=== PATIENT | male | born 1970 | race Hispanic/Latino ===

== ENCOUNTER 2020-06-28 18:49 | Emergency (ER) | payer BC ==
--- OUTSIDE RECORDS SUMMARY | 2020-06-28 18:53 | XMS REPORT | Clinical Summary ---
:1970 Author Organization [facility] Address [address] [place] [id number] Care Team Providers Name Role Phone Kenya Hannah Primary Care Provider Madi Mercedes RN Unavailable Unavaila ble Allergies No Known Allergies Medications Medication Sig Dispensed Refills Start End Status Date Date blood glucose Use 4 timer per 120 Each 3 03/26/20 Active (PRECISION XTRA day: first thing 19 TEST STRIPS) test in the morning, stripsIndications: and before each Type 2 diabetes meal.. mellitus with chronic kidney disease, without long-term current use of insulin, unspecified CKD stage blood glucose Use as directed.. 1 Kit 0 03/26/20 Active meter (PRECISION 19 XTRA GLUCOMETER)Indicat ions: Type 2 diabetes mellitus with chronic kidney disease, without long-term current use of insulin, unspecified CKD stage ferrous sulfate Take 1 tablet by 90 tablet 3 03/27/20 Active 325 mg (65 mg mouth every other 19 iron) day. tabletIndications: Anemia, unspecified type clotrimazole Apply to affected 28.35 g 0 03/26/20 Active (LOTRIMIN) 1 % area 2 times 19 topical daily. creamIndications: Cellulitis of right lower extremity ergocalciferol Take 1 capsule by 90 capsule 0 03/26/20 Active (VITAMIN D2) 1,250 mouth weekly. 19 mcg (50,000 unit) capsuleIndications : CKD stage 5 due to type 2 diabetes mellitus lancets 28 Use 4 times daily 100 Each 6 05/01/20 A ctive gaugeIndications: (in the morning 19 Type 2 diabetes when you wake up, mellitus with and before each chronic kidney meal) to test disease, without blood sugar.. long-term current use of insulin, unspecified CKD stage ergocalciferol Take 1 capsule by 12 capsule 1 05/31/20 Active (VITAMIN D2) 1,250 mouth weekly. 19 mcg (50,000 unit) capsuleIndications : ESRD (end stage renal disease), Vitamin D deficiency insulin lispro Inject 30 mL 0 07/18/20 Activ e (HUMALOG U-100 subcutaneously: 3 19 INSULIN) 100 units before unit/mL breakfast, 5 injectionIndicatio units before ns: ESRD (end lunch, 3 units stage renal before dinner. disease), Poorly controlled type 2 diabetes mellitus with complication INSULIN SYRINGE Use to inject 300 Syringe 3 04/03/20 Active 0.5 mL 30GX5/16" medication 3 020 (MONOJECT times daily. Use ULTRACOMFORT a new syringe INSULIN SYR 0.5ML each time. 30GX5/16") syringe-needleIndi cations: Type 2 diabetes mellitus with chronic kidney disease, without long-term current use of insulin, unspecified CKD stage atorvastatin Take 1 tablet by 90 tablet 3 04/03/20 Active (LIPITOR) 40 mg mouth at bedtime 20 tabletIndications: nightly. Mixed hyperlipidemia insulin detemir Inject 30 mL 0 04/28/20 Acti ve U-100 (LEVEMIR) subcutaneously : 20 100 unit/mL 12 units before injectionIndicatio breakfast ns: Cellulitis of (PUERTO RICAN). right lower extremity carvediloL (COREG) Take 1 tablet by 180 tablet 3 05/05/20 Active 25 mg mouth 2 times 20 tabletIndications: daily (with Essential meals). hypertension gabapentin Take 1 capsule by 90 capsule 3 05/05/20 Active (NEURONTIN) 100 mg mouth daily. 20 capsuleIndications : Diabetic nephropathy associated with type 2 diabetes mellitus NIFEdipine Take 1 tablet by 90 tablet 3 05/05/20 Ac tive (PROCARDIA XL) 90 mouth daily. 20 mg extended release tabletIndications: Essential hypertension INSULIN SYRINGE Use to inject 300 Syringe 3 03/26/20 Discontinued 0.5mL 30GX5/16" medication 3 020 (MONOJECT times daily. Use ULTRACOMFORT a new syringe INSULIN SYR 0.5ML each time. 30GX5/16") syringe-needleIndi cations: Type 2 diabetes mellitus with chronic kidney disease, without long-term current use of insulin, unspecified CKD stage atorvastatin Take 1 tablet by 90 tablet 3 03/26/20 Discontinued (LIPITOR) 40 mg mouth at bedtime 020 tabletIndications: nightly. Mixed hyperlipidemia carvediloL (COREG) Take 1 tablet by 180 tablet 3 03/26/2006/12 Discontinued 25 mg mouth 2 times 020 (Reord er) tabletIndications: daily (with Essential meals). hypertension sevelamer Take 3 tablets by 120 tablet 6 03/26/20 D iscontinued carbonate mouth 3 times 019 (Reord er) (RENVELA) 800 mg daily with meals. tabletIndications: CKD stage 5 due to type 2 diabetes mellitus gabapentin Take 1 capsule by 90 capsule 3 03/27/20 Discontinued (NEURONTIN) 100 mg mouth daily. 020 (Reorder) capsuleIndications : Diabetic nephropathy associated with type 2 diabetes mellitus NIFEdipine Take 1 tablet by 90 tablet 3 04/18/20 Di scontinued (PROCARDIA XL) 90 mouth daily. 19 020 (Reorder) mg extended release tabletIndications: Essential hypertension insulin detemir Inject 25 Units 30 mL 3 05/31/20 Discontinued U-100 (LEVEMIR) under the skin 100 unit/mL every morning And injectionIndicatio 5 units under the ns: Cellulitis of skin in the right lower evening.. extremity bumetanide (BUMEX) Take 3 tablets by 90 tablet 3 05/31/2008/24 Discontinued 1 mg mouth 2 times 019 (Reord er) tabletIndications: daily. Essential hypertension insulin lispro Inject 5 Units 30 mL 3 06/07/20 Discontinued (HUMALOG U-100 under the skin 2 INSULIN) 100 times daily (with unit/mL meals). injectionIndicatio ns: ESRD (end stage renal disease), Poorly controlled type 2 diabetes mellitus with complication insulin detemir Inject 30 mL 0 07/18/20 Disc ontinued U-100 (LEVEMIR) subcutaneously : 100 unit/mL 18 units before injectionIndicatio breakfast and 3-5 ns: Cellulitis of units under the right lower skin in the extremity evening.. ofloxacin Instill 1 Drop in 5 mL 0 10/07/ Ex pired (OCUFLOX) 0.3 % left eye 4 times 19 020 ophthalmic daily for 10 solutionIndication days. s: Proliferative diabetic retinopathy of both eyes with macular edema associated with type 2 diabetes mellitus prednisoLONE Instill 1 Drop in 5 mL 5 10/07/ acetate (PRED left eye 4 times 19 019 FORTE) 1 % daily for 10 ophthalmic days. suspensionIndicati ons: Proliferative diabetic retinopathy of both eyes with macular edema associated with type 2 diabetes mellitus prednisoLONE Instill 1 Drop in 5 mL 5 10/25/ acetate (PRED both eyes 4 times 20 020 FORTE) 1 % daily for 10 ophthalmic days. suspensionIndicati ons: Proliferative diabetic retinopathy of both eyes with macular edema associated with type 2 diabetes mellitus insulin detemir Inject 30 mL 0 11/13/19 Disc ontinued U-100 (LEVEMIR) subcutaneously : 20 020 100 unit/mL 10 units before injectionIndicatio breakfast. ns: Cellulitis of right lower extremity insulin detemir Inject 30 mL 0 12/25/ Disc ontinued U-100 (LEVEMIR) subcutaneously : 20 020 100 unit/mL 13 units before injectionIndicatio breakfast ns: Cellulitis of (PUERTO RICAN). right lower extremity bumetanide (BUMEX) Take 3 tablets by 90 tablet 3 01/29/2006/12 Discontinued 1 mg mouth 2 times 20 020 (Other ) tabletIndications: daily. Essential hypertension sevelamer Take 3 tablets by 120 tablet 6 01/29/202 D iscontinued carbonate mouth 3 times 20 020 (Thera py (RENVELA) 800 mg daily with meals. completed) tabletIndications: CKD stage 5 due to type 2 diabetes mellitus carbamide peroxide Instill 5 Drops 1 Bottle 0 04/20/2004/24 (DEBROX) 6.5 % in each ear daily 20 020 DropIndications: for 4 days. Bilateral impacted cerumen Active Problems Problem Noted Date Vitreous hemorrhage 06/03/2020 Overview: Added automatically from request for enoc cesia [id number] Vitreous hemorrhage of both eyes 08/06/2019 Overview: Added automatically from request for enoc callaway [id number] Vitamin D deficiency 03/24/2019 Secondary hyperparathyroidism 03/24/2019 CKD stage 5 due to type 2 diabetes mellitus 03/24/2019 Nephrotic range proteinuria 03/24/2019 Proliferative diabetic retinopathy of both eyes with m acular edema 03/24/2019 associated with type 2 diabetes mellitus Diabetic nephropathy 03/14/2019 Ataxia 03/08/2019 Anemia of renal disease 03/08/2019 Hypoglycemia 03/08/2019 Essential hypertension 01/24/2019 Acute kidney injury superimposed on chronic kidney dis ease 01/24/2019 Poorly controlled type 2 diabetes mellitus with compli cation 01/24/2019 Volume overload 01/24/2019 Hypervolemia 01/24/2019 Anasarca Cellulitis of right lower extremity ESRD (end stage renal disease) Encounters Date Type Specialty Care Team Description 06/09/2020 [facility] KwesiAilcia, Type II or u nspecified type diabetes mellitus with neurological manifestations, not stated as uncontrolled(250.60) (Primary Dx); Encounter ALEENA Zambrano CKD (chronic ki dney disease) requiring chronic dialysis; Hyperlipidemia, unspecified hyperlipidemia type; Colon cancer sc reening 06/03/2020 Nurse Only Ophthalmology Margi Vargas MD diabetic retinopathy Iban, Roberta of both eyes with macular edema associated with type 2 diabetes oneida itus 06/03/2020 Office Visit Ophthalmology Margi Vargas diabetic retinopathy of both eyes with macular edema associated with type 2 diabetes mellitus (Primary Dx); MD Latasha Vitreous hemorr jericho of right eye; Combined forms of age-related cataract of both eyes 05/26/2020 Telephonic Clinical Pharmacy Sushila Vargas Insulin -requiring or Encounter A, RPH dependent type II diabetes mellit us (Primary Dx) 05/05/2020 [facility] OroscoVargas, Type II or u nspecified type diabetes mellitus with neurological manifestations, not stated as uncontrolled(250.60) (Primary Dx); Encounter ALEENA Zambrano Essential hyper tension; CKD stage 5 due to type 2 diabetes mellitus; Diabetic nephro jenaro associated with type 2 diabetes mellitus; Hyperlipidemia, unspecified hyperlipidemia type; Colon cancer sc reening 04/28/2020 Telephonic Clinical Pharmacy Sushila Vargas Insulin -requiring or Encounter A, RPH dependent type II diabetes mellit us (Primary Dx) 04/28/2020 Orders Only [facility] Orosco-Vargas, Medications [place] 04/20/2020 Same Day [facility] Practice Moni Savage NP Language barrier (Primary Dx); Bilateral impac diana cerumen; Pain in left ea r; Encounter for d iabetic foot exam 04/03/2020 Refill [facility] Orosco-Vargas, Medications [place] 03/03/2020 Telephonic Clinical Pharmacy Sushila Vargas NO SHOW ENCOUNTER Encounter A, RPH (Primary Dx) 01/29/2020 Refill [facility] Orosco-Vargas, Medications [place] 12/25/2019 Orders Only [facility] Orosco-Vargas, Medications [place] 12/24/2019 Office Visit Clinical Pharmacy Sushila Vargas Insulin -requiring or A, RPH dependent type II diabetes mellit us (Primary Dx) 11/29/2019 Office Visit Ophthalmology Margi Vargas MD diabetic retino jenaro of both eyes wi th macular edema associated with type 2 diabetes oneida itus (Primary Dx) 11/20/2019 Emergency Emergency Medicine Hu, Orthostat ic Higinio, DO hypotension (Pr imary Dx) 11/12/2019 Office Visit Clinical Pharmacy Sushila Vargas Insulin -requiring or dependent type II diabetes mellitus (Primary Dx); A, RPH Noncompliance w ith diabetes treatment 11/12/2019 Orders Only [facility] [place]rosco-Vargas, Medications [place] 11/01/2019 Office Visit Ophthalmology Margi Vargas MD diabetic retino jenaro of both eyes wi th macular edema associated with type 2 diabetes oneida itus (Primary Dx) 10/25/2019 Office Visit Ophthalmology Tonio Lee MD Prolifera tive diabetic retino jenaro of both eyes wi th macular edema associated with type 2 diabetes oneida itus (Primary Dx) 10/24/2019 Anesthesia Event Elva Hernandez MD [facility], Resident OmkarPR 10/24/2019 Surgery Margi Vargas 25g pars china na MD Latasha vitrectomy and endolaser, air exchange of lef t eye 10/24/2019 Hospital Margi Vargas Vitreous hem orrhage of both eyes (Primary Dx); Encounter MD Latasha Essential hyper tension; Acute kidney in jury superimposed on chronic kidney disease; Poorly controll ed type 2 diabetes mellitus with complication; Other hypervole stan; Hypervolemia, u nspecified hypervolemia type; Anasarca; Ataxia; Anemia of renal disease; Hypoglycemia; Diabetic nephro jenaro associated with type 2 diabetes mellitus; Cellulitis of r ight lower extremity; Vitamin D defic iency; Secondary hyper parathyroidism; CKD stage 5 due to type 2 diabetes mellitus; Nephrotic range proteinuria; Proliferative d iabetic retinopathy of both eyes with macular edema associated with type 2 diabetes mellitus; ESRD (end stage renal disease) 10/08/2019 Office Visit Thoracic Diseases Nargis Coronado MD ESRD (end stage renal disease) (Prima ry Dx) 10/07/2019 Office Visit Ophthalmology Casi De La Cruz MD Prolifera tive diabetic retino jenaro of both eyes wi th macular edema associated with type 2 diabetes oneida itus (Primary Dx) 10/03/2019 Office Visit Ophthalmology [place], Patient left w ithout being seen (Primary Dx); ALEENA Zambrano Type II or unspecified type diabetes vanessa litus with neurological manifestations, not stated as uncontrolled(250.60) Tonio Lee MD 09/24/2019 Hospital Anesthesiology [place], Encounter ALEENA Zambrano Stephanie O, MD 08/15/2019 Office Visit Clinical Pharmacy Sushila Vargas Insulin -requiring or dependent type II diabetes mellitus (Primary Dx); A, [facility] Encounter for v accination 08/06/2019 Office Visit Ophthalmology Margi Vargas Vitreous he morrhage of both eyes (Primary Dx); MD Latasha Proliferative d iabetic retinopathy of both eyes with macular edema associated with type 2 diabetes mellitus 08/02/2019 Emergency Emergency Medicine Booker Walsh PTrenton a in other MD chronic disease s classified else where (Primary Dx) 08/02/2019 Refill Family Practice Elva Dias MD Medicat ions 08/02/2019 Refill Internal Medicine Omar Huerta, Medica tions DO 07/30/2019 Emergency Emergency Medicine David Hernandez, ESRD (end stage renal MD disease) (Prima ry Dx) 07/24/2019 Office Visit Endocrinology Jolanta Mcgregor Type 2 diab etmarlon B, Fellow() mellitus with chronic Ephraim Cunha MD kidney dise ase, without long-te rm current use of insulin, unspec ified CKD stage (Prim cherry Dx) 07/24/2019 Nurse Only Endocrinology Jolanta Mcgregor, Fellow(MD) 07/18/2019 Office Visit Clinical Pharmacy Sushila Vargas Insulin -requiring or dependent type II diabetes mellitus (Primary Dx); A, RPH Noncompliance w ith diabetes treatment 07/18/2019 Orders Only Family Practice Nato Hannah PA 07/17/2019 Emergency Emergency Medicine Gio Capellan MD Dizzi ness (Primary Dx); Anemia, unspeci fied type 06/29/2019 Emergency Emergency Medicine Rusty Pride ESRD ( end stage renal MD Maranda disease) (Primary Dx) Chaya Sumner MD after 06/28/2019 Immunizations Name Administration Dates Next Due Hepatitis B Pedi/Adol 02/14/2019 Influenza, Vaccine<FLUCELVAX>(Multi-Dose) 08/15/2019 PPV 23 (Pneumococcal Polysaccharide 23 Valent) 2019 Social History Tobacco Use Types Packs/Day Years Used Date Never Smoker Smokeless Tobacco: Never Used Tobacco Cessation: Counseling Given: No Alcohol Use Drinks/Week oz/Week Comments Not Currently Food Insecurity Answer Date Recorded Within the past 12 months, you worried that your food Someti mes true 04/30/2020 would run out before you got money to buy more. Within the past 12 months, the food you bought just Sometime s true 04/30/2020 didn't last and you didn't have money to get more. Sex Assigned at Date Recorded Not on file Job Start Date Occupation Industry Not on file Not on file Not on file Travel History Travel Start Travel End No recent travel history available. COVID-19 Exposure Response Date Recorded In the last month, have you been in contact with No / Unsure 06/03/2020 2:02 PM CDT someone who was confirmed or suspected to have Coronavirus / COVID-19? Last Filed Vital Signs Vital Sign Reading Time Taken Comments Blood Pressure 158/75 04/20/2020 4:25 PM took bp meds today CDT Pulse 75 04/20/2020 4:25 PM CDT Temperature 36.6 C (97.8 F) 04/20/2020 4:25 PM CDT Respiratory Rate 18 04/20/2020 4:25 PM CDT Oxygen Saturation 99% 04/20/2020 4:25 PM CDT Inhaled Oxygen - - Concentration Weight 57.2 kg (126 lb) 04/20/2020 4:25 PM CDT Height 158.3 cm (5' 2.32") 04/20/2020 4:25 PM CDT Body Mass Index 22.81 04/20/2020 4:25 PM CDT Plan of Treatment Date Type Specialty Care Team Description 07/17/2020 Telephonic Encounter Family Practice Kenya Hannah PA [address] [place], [place] [address] [phone] Health Maintenance Due Date Last Done Comments IMM Influenza Seasonal Jul to 07/23/2020 08/15/2019December (>/= 19 yrs) DM HGBA1C (Yearly) 08/28/2020 08/28/2019, 07/24/2019, 05/13/2019, Additional history exists DM Foot Exam (Yearly) 04/20/2021 04/20/2020, 06/05/2019, 04/18/2019 DM Retinal Exam (Yearly) 06/03/2021 06/03/2020, 11/01/2019, 10/07/2019, Additional history exists DM Microalbumin Urine Scrn 06/09/2021 06/09/2020, 0, (Yearly) 05/05/2020, Additional history exists Colorectal Cancer Scrn Annual 06/24/2021 06/24/2020, 2018, (FIT/FOBT) Age 50 to 75 02/19/2019 Goals Goal Patient Goal Associated Recent Patient-Stated? Author Type Problems Progress Control Diet On track No Chintan, portion sizes (04/18/2019 Ishan Beltre 3:11 PM CDT) Note: Limit to 3 oz of protein (2 eggs) per me al and 2 servings CHO (2 tortillas or <1 c rice, beans, lentils, oatmeal, etc) Feel more energetic Lifestyle Not on track (04/18/2019 Debra Roche, Medical 2:37 PM CDT) Outbound Call Center Representative Eat Healthy Lifestyle No Marci Batista, LUBRICATION SUPERVISOR HBA1C < 7 Treatment Not on track (04/18/2019 Kenya Burrows PA 2:38 PM CDT) Maintain blood pressure Treatment Not on track ( 9 No Kenya Hannah PA under 140/90 2:37 PM CDT) Procedures Procedure Name Priority Date/Time Associated Comments Diagnosis FECAL OCCULT BLOOD Routine 06/24/2020 4:08 Colon cancer Resul ts for this PM CDT screening procedure are i n the results section. DIABETIC FOOT EXAM Routine 04/20/2020 5:00 Encounter for Resu lts for this PM CDT diabetic foot procedure are in exam the results section. BMP POC Routine 11/20/2019 12:47 Results for this PM [employer] procedure are i n the results section. ECHG EKG PROC 12 LEAD EKG; Routine 11/20/2019 11:48 Results for this TRACING ONLY AM [employer] procedure are i n the results section. GLUCOSE POC Routine 11/20/2019 11:33 Results for this AM [employer] procedure are i n the results section. GLUCOSE POC Routine 10/24/2019 8:57 Results for this PM [employer] procedure are i n the results section. VITRECTOMY TRANS PARS PLANA 10/24/2019 6:30 Vitreous WITH ENDOPHOTOCOAGULATION PM [employer] hemorrhage of both eyes Special Needs Dr. Sanon time; 1 pm- confirmed with/patient @ [phone]. CHLORIDE STAT 10/24/2019 5:42 Results for this PM [employer] procedure are i n the results section. GLUCOSE STAT 10/24/2019 5:42 Results for this PM [employer] procedure are i n the results section. SODIUM/POTASSIUM STAT 10/24/2019 5:42 Results for this PM [employer] procedure are i n the results section. CALCIUM, IONIZED STAT 10/24/2019 5:42 Results for this PM [employer] procedure are i n the results section. ARTERIAL BLOOD GAS STAT 10/24/2019 5:42 Resul ts for this WITH HEMOGLOBIN PM [employer] procedure ar e in the results section. ABG/LYTES/HGB/IONIZED STAT 10/24/2019 5:42 Re sults for this CA PANEL PM [employer] procedure are i n the results section. GLUCOSE POC Routine 10/24/2019 5:37 Results for this PM [employer] procedure are i n the results section. CBC Routine 08/28/2019 10:59 Anemia of chronic Result s for this AM [employer] renal failure, procedure are in unspecified CKD stage the re sults section. FERRITIN Routine 08/28/2019 10:59 Anemia of chronic Result s for this AM [employer] renal failure, procedure are in unspecified CKD stage the re sults section. IRON PROFILE Routine 08/28/2019 10:59 Anemia of chronic Result s for this AM [employer] renal failure, procedure are in unspecified CKD stage the re sults section. CBC/DIFF Routine 08/28/2019 10:59 Anemia of chronic Result s for this AM [employer] renal failure, procedure are in unspecified CKD stage the re sults section. HEMOGLOBIN A1C Routine 08/28/2019 10:59 Diabetes mellitus, Res ults for this AM [employer] type II, insulin procedure a re in dependent the results section. LIPID PROFILE Routine 08/28/2019 10:59 Mixed hyperlipidemia Re sults for this AM [employer] procedure are i n the results section. COMPREHENSIVE Routine 08/28/2019 10:59 Diabetes mellitus, Resu lts for this METABOLIC PANEL AM [employer] type II, insulin procedur e are in dependent the results Mixed hyperlipid emia section. Essential hypertension BMP POC Routine 08/02/2019 11:35 Results for this AM CDT procedure are i n the results section. CBC STAT 08/02/2019 11:17 Results for this AM CDT procedure are i n the results section. T&S - COLLECTION STAT 08/02/2019 11:17 Results for this AM CDT procedure are i n the results section. CBC/DIFF STAT 08/02/2019 11:17 Results for this AM CDT procedure are i n the results section. TYPE AND SCREEN STAT 08/02/2019 11:17 Results for this AM CDT procedure are i n the results section. GLUCOSE POC Routine 08/02/2019 9:20 Results for this AM CDT procedure are i n the results section. BMP POC Routine 07/30/2019 9:19 Results for this AM CDT procedure are i n the results section. 12 LEAD EKG Routine 07/30/2019 8:18 Results for this AM CDT procedure are i n the results section. GLUCOSE POC Routine 07/30/2019 8:11 Results for this AM CDT procedure are i n the results section. HEMOGLOBIN A1C Routine 07/24/2019 10:24 Type 2 diabetes Result s for this AM CDT mellitus with chronic proced ure are in kidney disease, the results without long-term section. current use of insulin, unspecified CKD stage BASIC METABOLIC PANEL Routine 07/24/2019 10:24 Type 2 diabetes Results for this AM CDT mellitus with chronic proced ure are in kidney disease, the results without long-term section. current use of insulin, unspecified CKD stage RBC UNITS STAT 07/24/2019 2:10 Results for this AM CDT procedure are i n the results section. VBG POC Routine 07/17/2019 9:25 Results for this AM CDT procedure are i n the results section. RBC UNITS STAT 07/17/2019 9:18 Results for this AM CDT procedure are i n the results section. T&S - COLLECTION STAT 07/17/2019 9:18 Results for this AM CDT procedure are i n the results section. CBC STAT 07/17/2019 9:18 Results for this AM CDT procedure are i n the results section. TYPE AND SCREEN STAT 07/17/2019 9:18 Results for this AM CDT procedure are i n the results section. CBC/DIFF STAT 07/17/2019 9:18 Results for this AM CDT procedure are i n the results section. BMP POC Routine 07/17/2019 8:35 Results for this AM CDT procedure are i n the results section. 12 LEAD EKG Routine 07/17/2019 7:23 Results for this AM CDT procedure are i n the results section. 12 LEAD EKG Routine 06/29/2019 6:29 Results for this PM CDT procedure are i n the results section. HEPATITS B CORE AB, Routine 06/29/2019 5:48 Resu lts for this TOTAL PM CDT procedure are i n the results section. HEPATITIS PANEL Routine 06/29/2019 5:48 Results for this PM CDT procedure are i n the results section. HEPATITIS B SURFACE Routine 06/29/2019 5:48 Resu lts for this AB PM CDT procedure are i n the results section. PHOSPHORUS STAT 06/29/2019 12:32 Results for this PM CDT procedure are i n the results section. BASIC METABOLIC PANEL STAT 06/29/2019 12:32 Re sults for this PM CDT procedure are i n the results section. MAGNESIUM STAT 06/29/2019 12:32 Results for this PM CDT procedure are i n the results section. RBC UNITS STAT 06/29/2019 7:26 Results for this AM CDT procedure are i n the results section. T&S - COLLECTION STAT 06/29/2019 7:26 Results for this AM CDT procedure are i n the results section. TYPE AND SCREEN STAT 06/29/2019 7:26 Results for this AM CDT procedure are i n the results section. DIFFERENTIAL, STAT 06/29/2019 6:25 Results fo r this MANUAL-WAM AM CDT procedure are i n the results section. CBC STAT 06/29/2019 6:25 Results for this AM CDT procedure are i n the results section. CBC/DIFF STAT 06/29/2019 6:25 Results for this AM CDT procedure are i n the results section. BMP POC Routine 06/29/2019 4:48 Results for this AM CDT procedure are i n the results section. after 06/28/2019 Results Fecal Occult Blood (06/24/2020 4:08 PM CDT) Pathologist Sig [facility] Occult Blood Negative Negative [facility] Specimen Stool - Feces Performing Organization Address City/State/Zipcode Phone Number [facility] [address] [place] [address] DIABETIC FOOT EXAM (04/20/2020 5:00 PM CDT) Narrative Performed At Moni Savage NP 04/20/2020 5:39 PM Diabetic Foot Exam was performed at 04/20 5:16 PM. Right foot sensation is normal, right foot pulses are normal, rig ht foot appearance is normal. Left foot sensation is normal, left brie t pulses are normal, left foot appearance is normal. POCT BMP POC docked device (11/20/2019 12:47 PM RESTAURANT HOSTESS)Only the most recent of5 resultswithin the time period is included. Pathologist Sig nature Sodium POC 134 (L) 136 - 145 mmol/L [facility] Potassium POC 3.9 3.5 - 5.1 mmol/L [facility] Chloride POC 92 (L) 98 - 107 mmol/L [facility] TCO2 POC 34 (H) 21 - 32 mmol/L [facility] Urea Nitrogen POC 23 (H) 7 - 18 mg/dL [facility] Creatinine POC 4.3 (H) 0.6 - 1.3 mg/dL [facility] Glucose POC 207 (H) 74 - 106 mg/dL [facility] Ionized Calcium POC 1.07 (L) 1.15 - 1.29 mmol/L [facility] GFR, Estimated 15 (L) >=90 mL/min/1.73 m2 [facility] Hemoglobin POC 12.9 12 - 16 g/dL [facility] Hematocrit POC 38.0 37.0 - 47.0 % [facility] Specimen Blood, venous Performing Organization Address [place] [place] Phone Number [facility] [address] [place] [address] 12 LEAD EKG (11/20/2019 11:48 AM RESTAURANT HOSTESS) 12 LEAD EKG FOR [facility] Test Date: 2019-11-20 Pat Name: TERRY MALAVE Department: 6520 Room: Gender: Senior Benefits Manager: JOELLEN : 1970 Requested By: MARIANGEL Orozco Order Number: [id number] Reading MD: Lyn Mariscal Measu rements Intervals [place] Rate: 80 P: 55 [place]: 174 QRS: -9 QRSD: 92 T: 57 QT: 401 QTc: 465 Interpretive S tatements SINUS RHYTHM POSSIBLE LEFT ATRIAL ENLARGEMENT POSSIBLE LEFT VENTRICULAR HYPERTROPHY POSSIBLE SEPTAL MYOCARDIAL INFARCTION, OF INDETERMINAT E AGE Electronically Signed On 11-22-2019 5:41:51 RESTAURANT HOSTESS by Howard munguia Ekerpeter Specimen Performing Organization Address [place] [place] Phone Number [facility] POCT GLUCOSE POC docked device (11/20/2019 11:33 AM RESTAURANT HOSTESS)Only the most recent of5 resultswithin the time period is included. Pathologist Sig nature Glucose POC 197 (H) 74 - 106 mg/dL [facility] Specimen Blood Performing Organization Address [facility] [place] Phone Number [facility] [address] [place] [address] Arterial Blood Gas with Hemoglobin (10/24/2019 5:42 PM RESTAURANT HOSTESS) Temperature 37.0 degrees C [facility] pH, Arterial 7.34 (L) 7.35 - 7.45 [facility] pCO2, Arterial 43.1 32.0 - 45.0 mm [facility] Hg pO2, Arterial 68 (L) 72 - 104 mm Hg [facility] Base Excess, Arterial -2.4 -2.5 - 2.5 [facility] mmol/L HCO3, Arterial 22.5 22.0 - 26.0 [facility] mmol/L % Sat, Arterial 91.0 (L) 95.0 - 99.0 % [facility] Arterial Hemoglobin 12.7 (L) 14.0 - 18.0 g/dL [facility] RY Specimen Blood Performing Organization Address [place] Phone Number [facility] [address] [place] [address] Sodium/Potassium (10/24/2019 5:42 PM RESTAURANT HOSTESS) Pathologist Sig nature Potassium 4.4 3.5 - 5.1 mmol/L [facility] Sodium 132 (L) 136 - 145 mmol/L [facility] Specimen Blood Performing Organization Address [place] [place] Phone Number [facility] [address] [place] [address] [phone] Calcium, Ionized (10/24/2019 5:42 PM RESTAURANT HOSTESS) Pathologist Sig nature Calcium, Ionized 1.02 (L) 1.15 - 1.29 [facility] mmol/L Specimen Blood Performing Organization Address [place] [place] Phone Number [facility] [address] [place] [address] [phone] Glucose (10/24/2019 5:42 PM RESTAURANT HOSTESS) Pathologist Sig nature Glucose 234 (H) 74 - 106 mg/dL [facility] Specimen Blood Performing Organization Address [facility] Phone Number [facility] [address] [place] [address] Chloride (10/24/2019 5:42 PM RESTAURANT HOSTESS) Pathologist Sig nature Chloride 98 98 - 107 mmol/L [facility] Specimen Blood Performing Organization Address [place] [place] Phone Number [facility] [address] [place] [address] [phone] CBC/Diff (08/28/2019 10:59 AM RESTAURANT HOSTESS)Only the most recent of4 resultswithin the time period is included. WBC 7.2 4.5 - 12.0 K/uL [facility] RBC 2.91 (L) 4.60 - 6.20 [facility] M/uL Hemoglobin 8.2 (L) 14.0 - 18.0 [facility] g/dL Hematocrit 26.4 (L) 40.0 - 54.0 % [facility] MCV 90.7 82.0 - 92.0 fL [facility] MCH 28.2 27.0 - 31.0 pg [facility] MCHC 31.1 (L) 32.0 - 36.0 [facility] g/dL RDW 52.6 (H) 35.1 - 43.9 fL [facility] Platelet 159 150 - 400 K/uL [facility] Mean Platelet Volume 10.8 9.4 - 12.4 fL [facility] Percent NRBC 0.0 % [facility] Neutrophil 51.9 34.0 - 67.9 % [facility] Lymphs 20.9 (L) 21.8 - 50.0 % [facility] Monocytes 10.2 5.3 - 12.0 % [facility] Eos 15.9 (H) 0.8 - 5.0 % [facility] Basos 0.7 0.2 - 1.2 % [facility] Immature Granulocytes 0.4 0.0 - 0.5 % [facility] Neutrophils (Absolute) 3.74 1.78 - 5.36 [facility] Y K/uL Lymphs (Absolute) 1.51 1.32 - 3.57 [facility] K/uL Monocytes(Absolute) 0.74 0.30 - 0.82 [facility] K/uL Eos (Absolute) 1.15 (H) 0.04 - 0.54 [facility] K/uL Baso (Absolute) 0.05 0.01 - 0.08 [facility] K/uL Immature Grans (Abs) 0.03 0.00 - 0.03 [facility] K/uL Absolute NRBC 0.00 K/uL [facility] Specimen Blood Performing Organization Address City/State/Zipcode Phone Number [facility] [address] [place] [address] [phone] Hemoglobin A1C (08/28/2019 10:59 AM RESTAURANT HOSTESS)Only the most recent of2 resultswithin the time period is included. Pathologist Sig nature Hemoglobin A1c 4.7 4.3 - 6.1 % [facility] Estimated Average 88 70 - 110 mg/dL [facility] Glucose Specimen Blood Performing Organization Address [place] [place] Phone Number [facility] [address] [place], [place] [phone] Comprehensive Metabolic Panel (08/28/2019 10:59 AM RESTAURANT HOSTESS) Sodium 139 136 - 145 [facility] mmol/L Potassium 3.6 3.5 - 5.1 [facility] mmol/L Chloride 99 98 - 107 mmol/L [facility] CO2 28 21 - 31 mmol/L [facility] Glucose 141 (H) 70 - 110 mg/dL [facility] Calcium 8.5 (L) 8.6 - 10.3 [facility] mg/dL Urea Nitrogen 53.0 (H) 7.0 - 25.0 [facility] mg/dL Creatinine 7.7 (H) 0.7 - 1.3 mg/dL [facility] Alkaline Phosphatase 86 34 - 104 U/L [facility] ALT 19 7 - 52 U/L [facility] AST 17 13 - 39 U/L [facility] Bilirubin, Total 0.4 0.2 - 1.2 mg/dL [facility] Total Protein 6.2 6.0 - 8.3 g/dL [facility] GFR, Estimated 8 (L) >=90 [facility] mL/min/1.73 m2 Albumin 3.7 (L) 4.2 - 5.5 g/dL [facility] Anion Gap 12 5 - 16 mmol/L [facility] Specimen Blood Performing Organization Address [place] [place] Phone Number [facility] [address] [place] [address] [phone] Ferritin (08/28/2019 10:59 AM RESTAURANT HOSTESS) Pathologist [facility] nature Ferritin 420.3 (H) 23.9 - 336.2 ng/mL [facility] Specimen Blood Performing Organization Address [place] [place] Phone Number [facility] [address] [place] [address] Lipid Profile (08/28/2019 10:59 AM RESTAURANT HOSTESS) Cholesterol 108.0 <=200.0 mg/dL [facility] Triglyceride 86 <150 mg/dL [facility] HDL 43.0 See Reference [facility] Range Narrative. LABORATORY mg/dL LDL 48 <100 mg/dL [facility] Comment: [facility] Optimal: < 100.0 mg/dL Near Optimal: 120-129 mg/dL Borderline: 130-159 mg/dL High: 160-189 mg/dL Very High: >=190 mg/dL Patient Fasting? No [facility] Specimen Blood Narrative Performed At Patient is not fasting. For a triglyceride result grea ter than [facility] 440 mg/dL, consider re-testing when the patient is in a fasting state. Performing Organization Address [facility] Phone Number [facility] [address] [place] [address] Iron Profile (08/28/2019 10:59 AM RESTAURANT HOSTESS) Pathologist Sig nature Iron 54 50 - 212 ug/dL [facility] TIBC 248 (L) 250 - 450 ug/dL [facility] % Iron Sat 22 % [facility] Transferrin 177.49 (L) 203.00 - 362.00 [facility] mg/dL Specimen Blood Performing Organization Address [place] [place] Phone Number [facility] [address] [place] [address] Type and Screen (08/02/2019 11:17 AM CDT)Only the most recent of3 resultswithin the time period is included. Pathologist Sig nature Specimen Expiration 08/05/2019 23:59 [facility] ABO/RH O POS [facility] Antibody Screen NEG [facility] Specimen Blood Performing Organization Address [place] [place] Phone Number [facility] [address] [place] [address] 12 LEAD EKG (07/30/2019 8:18 AM CDT) 12 LEAD EKG FOR CHP [facility] SMS Test Date: 2019-07-30 Pat Name: TERRY MALAVE Department: 6520 Room: Gender: M Senior Benefits Manager: DEONTE : 1970 7 Requested By: BEVERLY Pagan Order Number: [id number] Reading MD: José Miguel PICKETT Measu rements Intervals [place] Rate: 75 P: 58 NY: 135 QRS: 0 QRSD: 101 T: 37 QT: 409 QTc: 459 Interpretive S tatements SINUS RHYTHM Normal ECG Electronically Signed On 07-30-2019 10:02:05 CDT by Alfa PICKETT Specimen Performing Organization Address [facility] [place] [facility] Phone Number [facility] Basic Metabolic Panel (07/24/2019 10:24 AM CDT)Only the most recent of2 results within the time period is included. Pathologist Sig nature Sodium 136 136 - 145 mmol/L [facility] Potassium 5.2 (H) 3.5 - 5.1 mmol/L [facility] Chloride 108 (H) 98 - 107 mmol/L [facility] CO2 15 (L) 21 - 31 mmol/L [facility] Urea Nitrogen 131.0 (HH) 7.0 - 25.0 mg/dL [facility] Creatinine 10.0 (HH) 0.7 - 1.3 mg/dL [facility] Glucose 130 (H) 70 - 110 mg/dL [facility] Calcium 8.2 (L) 8.6 - 10.3 mg/dL [facility] GFR, Estimated 6 (L) >=90 mL/min/1.[address] [facility] Anion Gap 13 5 - 16 mmol/L [facility] Specimen Blood - Arm, right Performing Organization Address [facility] [place] Phone Number [facility] [place] [place] [address] [phone] [facility] [id number] [place] [address] 1 Units (07/24/2019 2:10 AM CDT)Only the most recent of3 resultswithin the time period is included. Pathologist Sig nature Crossamtch Result N/A [facility] Specimen Blood Performing Organization Address [facility] Phone Number [facility] [address] [place] [address] POCT VBG POC docked device (07/17/2019 9:25 AM CDT) Pathologist Sig nature pH, Surinder POC 7.35 7.33 - 7.43 [facility] HCO3, Surinder POC 16 (L) 22 - 26 mmol/L [facility] TCO2 POC 17 (L) 21 - 32 mmol/L [facility] PO2, Venous POC (BKR) 161 (H) 50 - 75 mm Hg [facility] pCO2,Surinder POC 28.7 (L) 38 - 50 mmHg [facility] Base Deficit, Surinder POC -10 [facility] Param's Test MICHAEL [facility] Sample Type IVEN [facility] Site RRADIA [facility] O2 Delivery Device [facility] Lactic Acid POC 0.67 0.40 - 2.00 [facility] mmol/L % Sat, Surinder POC 99 % [facility] Specimen Blood, venous Performing Organization Address [facility] Phone Number [facility] [address] [place] [address] 12 LEAD EKG (07/17/2019 7:23 AM CDT) 12 LEAD EKG FOR [facility] Test Date: 2019-07-17 Pat Name: TERRY MALAVE Department: Room: Gender: M Senior Benefits Manager: : 7 Requested By: BEVERLY Pagan Order Number: [id number] Reading MD: Lyn Mariscal Measu rements Intervals [place] Rate: 76 P: 38 [place]: 175 QRS: -17 QRSD: 104 T: 16 QT: 412 QTc: 463 Interpretive S tatements SINUS RHYTHM Electronically Signed On 07-17-2019 15:56:21 CDT by Melquiades aMriscal Specimen Performing Organization Address [place] [place] Phone Number [facility] 12 LEAD EKG (06/29/2019 6:29 PM CDT) 12 LEAD EKG FOR [facility] Test Date: 2019-06-29 Pat Name: TERRY MALAVE Department: Room: Gender: M Senior Benefits Manager: [id number] : 1970 Requested By: CHAYA Bay Order Number: [id number] Reading MD: José Miguel PICKETT Measu rements Intervals [place] Rate: 91 P: 56 [place]: 185 QRS: -15 QRSD: 102 T: 48 QT: 395 QTc: 487 Interpretive S tatements SINUS RHYTHM MINIMAL VOLTAGE CRITERIA FOR LVH, CONSIDER NORMAL VARI ANT Borderline prolonged QTc Non-specific ST-T changes Abnormal ECG Electronically Signed On 06-30-2019 8:58:56 CDT by Krish PICKETT Specimen Performing Organization Address [place] [place] Phone Number SMS Hepatitis B Surface Ab (06/29/2019 5:48 PM CDT) Hep B Surf Ab Result <4.23 Refer to result [facility] Comment: comment. mIU/mL LAB[facility]ATORY Negative: < 8.00 mIU/mL Grayzone: > = 8.00 mIU/mL to < 12.00 mIU/mL Positive: > = 12.00 mIU/mL Hep B Surf Ab Negative Negative [facility] Specimen Blood Performing Organization Address [place] Phone Number [facility] [address] [place] [address] Hepatitis B Core Ab, Total (06/29/2019 5:48 PM CDT) Pathologist Sig nature Hep B Core Ab Total Negative Negative [facility] Specimen Blood Performing Organization Address [place] [place] Phone Number [facility] [address] [place], [place] [phone] Hepatitis Panel (06/29/2019 5:48 PM CDT) Pathologist Sig nature Hepatitis C Virus (HCV) Negative Negative [facility] RY Antibody Hep B Surface Ag Negative Negative [facility] Hep A Vir Ab IgM Negative Negative [facility] Hep B Core Ab IgM Negative Negative [facility] Specimen Blood Performing Organization Address [place] [place] Phone Number [facility] [address] [place], [place] [phone] Phosphorus (06/29/2019 12:32 PM CDT) Pathologist Sig nature Phosphorus 5.4 (H) 2.5 - 5.0 mg/dL [facility] Specimen Blood Performing Organization Address [place] [place] [facility] Phone Number [facility] [address] [place] [address] Magnesium (06/29/2019 12:32 PM CDT) Pathologist Sig nature Magnesium 2.7 1.9 - 2.7 mg/dL [facility] Specimen Blood Performing Organization Address [place] Phone Number [facility] [address] [place] [address] Transfuse (Red Cell units - nursing) (06/29/2019 12:06 PM CDT)Differential, Manual (06/29/2019 6:25 AM CDT) Pathologist Sig nature Neutrophil 45.0 34.0 - 67.9 % [facility] Lymphs 20.0 (L) 21.8 - 50.0 % [facility] Monocytes 4.0 (L) 5.3 - 12.0 % [facility] Eos 28.0 (H) 0.8 - 5.0 % [facility] Basos 3.0 (H) 0.2 - 1.2 % [facility] Neutrophils (Absolute) 3.69 1.78 - 5.36 K/uL [facility] Lymphs (Absolute) 1.64 1.32 - 3.57 K/uL [facility] Monocytes(Absolute) 0.33 0.30 - 0.82 K/uL [facility] Eos (Absolute) 2.30 (H) 0.04 - 0.54 K/uL [facility] Baso (Absolute) 0.25 (H) 0.01 - 0.08 K/uL [facility] Ovalocyte 2+ (A) None seen [facility] Schistocyte 1+ (A) None seen [facility] Cells Counted [facility] Specimen Blood Performing Organization Address City/State/Zipcode Phone Number [facility] [address] [place] [address] after 06/28/2019 Insurance Payer Benefit Plan / Subscriber ID Effective Dates Phone Addre ss Type Group BC/BS BCBS O xxxxxxxxxxxx 2019-[facility] [phone] [address] [employer] [id number] Advance Directives Code Status Date Activated Date Inactivated Comments Full Code 06/29/2019 5:39 AM 06/29/2019 9:06 PM Full Code 06/18/2019 5:28 AM 06/18/2019 5:41 PM Full Code 06/07/2019 6:30 AM 06/07/2019 3:19 PM Full Code 05/27/2019 8:31 PM 05/31/2019 7:11 PM Full Code 03/08/2019 11:25 PM 03/26/2019 2:55 PM
--- OUTSIDE RECORDS SUMMARY | 2020-06-28 18:54 | XMS REPORT | Continuity of Care Document ---
:1970 [facility] t Address [address] [place] [address] Care Team Providers Name Role Phone Kenya Sims Primary Care Physician Kenya Sims Attending Clinician Margi Vargas MD Attending Clinician Unavailable Iban Attending Clinician Unavailable Sam [facility], A Attending Clinician Janette AJ Attending Clinician Hu MCCAIN Attending Clinician Jesus RIOS Attending Clinician David RIOS, K Attending Clinician [facility] Janel, A Attending Clinician Cliff RIOS, D Attending Clinician Jono RIOS, I Attending Clinician Shannon RIOS, O Attending Clinician Nico RIOS, P Attending Clinician Arun RIOS C Attending Clinician Carol Huerta DO Attending Clinician David RIOS Attending Clinician Unavailable Balbir Sorto(), B Attending Clinician Guerline RIOS, L Attending Clinician Marilia RIOS Attending Clinician Witkov MD, B Attending Clinician Burak RIOS, R Attending Clinician Payers Payer Name Policy Type Policy Number Effective Date Expiration Date Prasanna good BC/BSBCBS xxxxxxxxxxxx 2019 Marcel oquendo HMOxxxxxxxxxx 00:00:00 xx2019-Pr -654- [id number] [address] Problems Condition Condition Condition Status Onset Resolution Last Treating Co mments Source Name Details Category Date Date Treatment Clinician Date Vitreous Vitreous Disease Active Overview: Jalloh rris hemorrhage hemorrhage 8-12 Added He alth 00:00: automatic 00 ally from request for surgery [id number] Vitreous Vitreous Disease Active 2018-10 Overview: Jalloh rris hemorrhage hemorrhage 0-15 Added He alth of both of both 00:00: automatic eyes eyes 00 ally from request for surgery [id number] Vitamin D Vitamin D Disease Active [facility] ris deficiency deficiency 6-02 He alth 00:00: 00 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 6-02 He alth hyroidism hyroidism 00:00: 00 CKD stage CKD stage Disease Active [facility] 5 due to 5 due to 6-02 Health type 2 type 2 00:00: diabetes diabetes 00 mellitus mellitus Nephrotic Nephrotic Disease Active [facility] range range 6-02 Health proteinuri proteinuri 00:00: a a 00 Proliferat Proliferat Disease Active H arris amor amor 6-02 Health diabetic diabetic 00:00: retinopath retinopath 00 y of both y of both eyes with eyes with macular macular edema edema associated associated with type with type 2 diabetes 2 diabetes mellitus mellitus Diabetic Diabetic Disease Active Harri s nephropath nephropath 5-23 He alth y y 00:00: 00 Ataxia Ataxia Disease Active [place] 5-17 Health 00:00: 00 Anemia of Anemia of Disease Active [facility] renal renal 5-17 Health disease disease 00:00: 00 Hypoglycem Hypoglycem Disease Active H arris ia ia 5-17 Health 00:00: 00 Essential Essential Disease Active [facility] ris hypertensi hypertensi 4-04 He alth on on 00:00: 00 Acute Acute Disease Active [place] kidney kidney 01-24 Health injury injury 00:00: superimpos superimpos 00 ed on ed on chronic chronic kidney kidney disease disease Poorly Poorly Disease Active [place] controlled controlled 01-24 He alth type 2 type 2 00:00: diabetes diabetes 00 mellitus mellitus with with complicati complicati on on Hypervolem Hypervolem Disease Active H arris ia ia 01-24 Health 00:00: 00 Anasarca Anasarca Disease Active [facility] Cellulitis Cellulitis Disease Active H arris of right of right Health lower lower extremity extremity ESRD (end ESRD (end Disease Active [facility] stage stage [facility] renal renal disease) disease) Allergies, Adverse Reactions, Alerts This patient has no known allergies or adverse reactions. Social History Social Habit Start Date Stop Date Quantity Comments Source Sex Assigned At [facility] alth Exposure to Not sure [facility] SARS-CoV-2 (event) Alcohol intake 2020-06-09 2020-06-09 Ex-drinker [facility] lt 00:00:00 00:00:00 (finding) History [facility] Food 2020-04-30 2020-04-30 2 [facility] Worry 00:00:00 00:00:00 History [facility] Food 2020-04-30 2020-04-30 2 [facility] Scarcity 00:00:00 00:00:00 Smoking Status Start Date Stop Date Source Never smoker [facility] Medications Ordered Filled Start Stop Current Ordering Indication Dosage Frequency Signature Comments Components Source Medication Medication Date Date Medication? Clinician (SIG) Name Name carvediloL Yes Essential 25mg Take 1 [place] (COREG) 25 7-14 hypertensio tablet by Thirsty mg tablet 00:00: n mouth 2 00 times daily (with meals). gabapentin 2019- Yes Diabetic 100mg QD Take 1 [place] (NEURONTIN) 7-14 nephropathy capsule by Thirsty 100 mg 00:00: associated mouth capsule 00 with type 2 daily. diabetes mellitus NIFEdipine Yes Essential 90mg QD Take 1 [place] (PROCARDIA 7-14 hypertensio tablet by Thirsty XL) 90 mg 00:00: n mouth extended 00 daily. release tablet insulin 2019- Yes Cellulitis Inject Jalloh rris detemir 04-28 of right subcutaneo He alth U-100 00:00: lower usly : 12 (LEVEMIR) 00 extremity units 100 unit/mL before injection breakfast (ROMANIAN). carbamide 2019- No Bilateral 5[drp] QD Instill 5 Rod peroxide 04-2003 impacted Drops in He alth (DEBROX) 00:00: 23:59 cerumen each ear 6.5 % Drop 00 :00 daily for 4 days. atorvastati Yes Mixed 40mg Take 1 [place] n (LIPITOR) 12 hyperlipide tablet by Thirsty 40 mg 00:00: stan mouth at tablet 00 bedtime nightly. INSULIN 2019- Yes Type 2 QD Use to Harri s SYRINGE 0.5 04-03 0910 diabetes inject H ealth mL 00:00: 23:59 mellitus medication 30GX5/16" 00 :00 with 3 times (MONOJECT chronic daily. Use ULTRACOMFOR kidney a new T INSULIN disease, syringe SYR 0.5ML without each time. 30GX5/16") long-term syringe-nee current use dle of insulin, unspecified CKD stage bumetanide 2019- No Essential 3mg Q.5D Take 3 Rod (BUMEX) 1 01-28 hypertensio tablets by Thirsty mg tablet 00:00: 00:00 n mouth 2 00 :00 times daily. sevelamer 2020- No CKD stage 5 2400mg Q.[id number] Take 3 Rod carbonate 01-28 due to type [id number] tablets by Thirsty (RENVELA) 00:00: 00:00 2 diabetes 3D mouth 3 800 mg 00 :00 mellitus times tablet daily with meals. insulin 2019- No Cellulitis Inject H arris detemir 12-25 of right subcutaneo H ealth U-100 00:00: 00:00 lower usly : 13 (LEVEMIR) 00 :00 extremity units 100 unit/mL before injection breakfast (ROMANIAN). insulin 2019- No Cellulitis Inject H arris detemir 11-13 of right subcutaneo H ealth U-100 00:00: 00:00 lower usly : 10 (LEVEMIR) 00 :00 extremity units 100 unit/mL before injection breakfast. prednisoLON 2019- No Proliferati 1[drp] Instill 1 Rod E acetate 10-25 ve diabetic Drop in Health (PRED 00:00: 23:59 retinopathy both eyes FORTE) 1 % 00 :00 of both 4 times ophthalmic eyes with daily for suspension macular 10 days. edema associated with type 2 diabetes mellitus ofloxacin 2018-10- No Proliferati 1[drp] Instill 1 Rod (OCUFLOX) 12-08 ve diabetic Drop in Health 0.3 % 00:00: 23:59 retinopathy left eye 4 ophthalmic 00 :00 of both times solution eyes with daily for macular 10 days. edema associated with type 2 diabetes mellitus prednisoLON 2018-10- No Proliferati 1[drp] Instill 1 Rod E acetate 12-08 ve diabetic Drop in Health (PRED 00:00: 23:59 retinopathy left eye 4 FORTE) 1 % 00 :00 of both times ophthalmic eyes with daily for suspension macular 10 days. edema associated with type 2 diabetes mellitus insulin 2018- Yes Poorly Inject Rod lispro 07-18 controlled subcutaneo H ealth (HUMALOG 00:00: type 2 usly: 3 U-100 00 diabetes units INSULIN) mellitus before 100 unit/mL with breakfast, injection complicatio 5 units n before lunch, 3 units before dinner. insulin 2019- No Cellulitis Inject H arris detemir 07-18 of right subcutaneo H ealth U-100 00:00: 00:00 lower usly : 18 (LEVEMIR) 00 :00 extremity units 100 unit/mL before injection breakfast and 3-5 units under the skin in the evening.. insulin 2018- No Poorly 5U Inject 5 [place] ris lispro 06-07 controlled Units Healt h (HUMALOG 00:00: 00:00 type 2 under the U-100 00 :00 diabetes skin 2 INSULIN) mellitus times 100 unit/mL with daily injection complicatio (with n meals). ergocalcife Yes Vitamin D 53771C Take 1 Rod rol 05-31 deficiency capsule by [facility] (VITAMIN 00:00: mouth D2) 1,250 00 weekly. mcg (50,000 unit) capsule bumetanide 2019- No Essential 3mg Q.5D Take 3 Rod (BUMEX) 1 05-31 10-11 hypertensio tablets by [facility] mg tablet 00:00: 00:00 n mouth 2 00 :00 times daily. insulin 2019- No Cellulitis 25U Inject 25 Rod detemir 05-31 09- of right Units [facility] U-100 00:00: 00:00 lower under the (LEVEMIR) 00 :00 extremity skin every 100 unit/mL morning injection And 5 units under the skin in the evening.. lancets 28 2018- Yes Type 2 Use 4 Cruz is gauge 7-10 diabetes times Health 00:00: mellitus daily (in 00 with the chronic morning kidney when you disease, wake up, without and before long-term each meal) current use to test of insulin, blood unspecified sugar.. CKD stage NIFEdipine 2019- No Essential 90mg QD Take 1 Rod (PROCARDIA 04-18 hypertensio tablet by [facility] XL) 90 mg 00:00: 00:00 n mouth extended 00 :00 daily. release tablet ferrous 2018- Yes Anemia, 325mg Take 1 Cruz is sulfate 325 03-27 unspecified tablet by [facility] mg (65 mg 00:00: type mouth iron) 00 every tablet other day. gabapentin 2019- No Diabetic 100mg QD Take 1 [place] (NEURONTIN) 03-27 nephropathy capsule by [facility] 100 mg 00:00: 00:00 associated mouth capsule 00 :00 with type 2 daily. diabetes mellitus blood Yes Type 2 Use 4 Rod glucose 6-[address] [facility] (PRECISION 00:00: mellitus day: first XTRA TEST 00 with thing in STRIPS) chronic the test strips kidney morning, disease, and before without each long-term meal.. current use of insulin, unspecified CKD stage blood 2019- Yes Type 2 Use as Rod glucose 6-04 diabetes directed.. He alth meter 00:00: mellitus (PRECISION 00 with XTRA chronic GLUCOMETER) kidney disease, without long-term current use of insulin, unspecified CKD stage clotrimazol 2018- Yes Cellulitis Q.5D Apply to [place] e 6-04 of right [facility] (LOTRIMIN) 00:00: lower area 2 1 % topical 00 extremity times cream daily. ergocalcife 2019- Yes CKD stage 5 [id number] Take 1 [place] rol 6-04 due to type capsule by sukhwinder (VITAMIN 00:00: 2 diabetes mouth D2) 1,250 00 mellitus weekly. mcg (50,000 unit) capsule carvediloL 2019- No Essential 25mg Take 1 [place] (COREG) 25 03-26 hypertensio tablet by [facility] mg tablet 00:00: 00:00 n mouth 2 00 :00 times daily (with meals). INSULIN 2019- No Type 2 QD Use to Harri s SYRINGE 03-26 diabetes inject Healt h 0.5mL 00:00: 00:00 mellitus medication 30GX5/16" 00 :00 with 3 times (MONOJECT chronic daily. Use ULTRACOMFOR kidney a new T INSULIN disease, syringe SYR 0.5ML without each time. 30GX5/16") long-term syringe-nee current use dle of insulin, unspecified CKD stage atorvastati 2019- Mixed 40mg Take 1 Jalloh rris n (LIPITOR) 03-26 hyperlipide tablet by [facility] 40 mg 00:00: 00:00 stan mouth at tablet 00 :00 bedtime nightly. sevelamer 2018- CKD stage 5 2400mg Q.[id number] Take 3 Rod carbonate 03-26 due to type [id number] tablets by Thirsty (RENVELA) 00:00: 00:00 2 diabetes 3D mouth 3 800 mg 00 :00 mellitus times tablet daily with meals. Immunizations Ordered Immunization Filled Immunization Date Status Commen ts Source Name Name Influenza, 2019-08-15 Completed [facility] Vaccine<FLUCELVAX>(Mul 00:00:00 ti-Dose) Hepatitis B Pedi/Adol 2019-02-14 Completed [facility] 00:00:00 PPV 23 (Pneumococcal [address] [facility] Polysaccharide 23 00:00:00 Valent) Vital Signs Vital Name Observation Time Observation Value Comments Source Systolic blood 2020-04-20 16:25:00 158 mm[Hg] took bp meds [facility] pressure today Diastolic blood 2020-04-20 16:25:00 75 mm[Hg] took bp meds [facility] pressure today Heart rate 2020-04-20 16:25:00 75 /min Marcel Oquendo ealt Body temperature 2020-04-20 16:25:00 36.56 Jovanna [facility] Respiratory rate 2020-04-20 16:25:00 18 /min [facility] Body height 2020-04-20 16:25:00 158.3 cm [facility] Body weight 2020-04-20 16:25:00 57.153 kg [facility] BMI 2020-04-20 16:25:00 22.81 kg/m2 [facility] Oxygen saturation 2020-04-20 16:25:00 99 /min [facility] in Arterial blood by Pulse oximetry Procedures Procedure Date / Time Performing Clinician Source Performed FECAL OCCULT BLOOD 2020-06-24 16:08:00 Kenya Hannah [facility] DIABETIC FOOT EXAM 2020-04-20 17:00:07 Moni Savage [facility] BMP POC 2019-11-20 12:47:00 Unknown, Provider [facility] ECHG EKG PROC 12 LEAD EKG; 2019-11-20 11:48:41 Mariangel Hickman [facility] TRACING ONLY GLUCOSE POC 2019-11-20 11:33:00 Unknown, Provider Marcel [facility] GLUCOSE POC 2019-10-24 20:57:00 Margi Vargas [facility] VITRECTOMY TRANS PARS PLANA 2019-10-24 18:30:00 Margi Vargas [facility] WITH ENDOPHOTOCOAGULATION ABG/LYTES/HGB/IONIZED CA PANEL 2019-10-24 17:42:00 Elva Hernandez [facility] ARTERIAL BLOOD GAS WITH 2019-10-24 17:42:[address] [facility] HEMOGLOBIN CALCIUM, IONIZED 2019-10-24 17:42:00 Elva Hernandez [facility] SODIUM/POTASSIUM 2019-10-24 17:42:00 Elva Hernandez [facility] GLUCOSE 2019-10-24 17:42:00 Elva Hernandez [facility] h CHLORIDE 2019-10-24 17:42:00 Elva Hernandez [facility] GLUCOSE POC 2019-10-24 17:37:00 Margi Vargas [facility] COMPREHENSIVE METABOLIC PANEL 2019-08-28 10:59:00 Libby Hannah [facility] LIPID PROFILE 2019-08-28 10:59:00 Kenya Hannah [facility] HEMOGLOBIN A1C 2019-08-28 10:59:00 Kenya Hannah lt CBC/DIFF 2019-08-28 10:59:00 [facility] IRON [facility]FILE 2019-08-28 10:59:00 Kenya Hannah lt FERRITIN 2019-08-28 10:59:00 Kenya Hannah lth CBC 2019-08-28 10:59:00 Kenya Hannah lth BMP POC 2019-08-02 11:35:00 Unknown, Provider Marcel [facility] lt TYPE AND SCREEN 2019-08-02 11:17:00 Che [facility] CBC/DIFF 2019-08-02 11:17:00 [facility] T&S - COLLECTION 2019-08-02 11:17:00 [facility] CBC 2019-08-02 11:17:00 [facility] GLUCOSE POC 2019-08-02 09:20:00 Unknown, Provider Rod [facility] BMP POC 2019-07-30 09:19:00 David Hernandez [facility] 12 LEAD EKG 2019-07-30 08:18:35 Beverly Johns [facility] GLUCOSE POC 2019-07-30 08:11:00 Unknown, Provider Rod [facility] BASIC METABOLIC PANEL 2019-07-24 10:24:[address] [facility] HEMOGLOBIN A1C 2019-07-24 10:24:00 Jolanta Mcgregor [facility] RBC UNITS 2019-07-24 02:10:00 Ted Ham [facility] VBG POC 2019-07-17 09:25:00 Gio Capellan [facility] CBC/DIFF 2019-07-17 09:18:00 Salome Balbuena [facility] TYPE AND SCREEN 2019-07-17 09:18:00 Salome Balbuena [facility] CBC 2019-07-17 09:18:00 Salome Balbuena [facility]alt [facility] T&S - COLLECTION 2019-07-17 09:18:00 Salome Balbuena [facility]al [facility] RBC UNITS 2019-07-17 09:18:00 Salome Balbuena [facility] BMP POC 2019-07-17 08:35:00 Gio Capellan 12 LEAD EKG 2019-07-17 07:23:26 [facility] 2019-06-29 18:29:21 Chaya Sumner HEPATITIS B SURFACE AB 2019-06-29 17:48:00 Corinna Vargas [facility] HEPATITIS PANEL 2019-06-29 17:48:00 Corinna Vargas h HEPATITS B CORE AB, TOTAL 2019-06-29 17:48:00 Corinna Vargas [facility] MAGNESIUM 2019-06-29 12:32:00 Conor Briseno h BASIC METABOLIC PANEL 2019-06-29 12:32:00 Conor Briseno [facility] PHOSPHORUS 2019-06-29 12:32:00 Conor Briseno h TYPE AND SCREEN 2019-06-29 07:26:00 Conor Briseno T&S - COLLECTION 2019-06-29 07:26:00 Conor Briseno RBC UNITS 2019-06-29 07:26:00 Conor Briseno CBC/DIFF 2019-06-29 06:25:00 Johana Major tonja CBC 2019-06-29 06:25:00 Johana Major [facility] tonja DIFFERENTIAL, MANUAL-WAM 2019-06-29 06:25:00 Johana Major [facility] BMP POC 2019-06-29 04:48:00 Unknown, Provider Marcel [facility] Plan of Care Planned Activity Planned Date Details Comments Source Future Scheduled Test 2021-06-24 00:00:00 Screening for [facility] malignant neoplasm of colon (procedure) [code = 749604075] Future Scheduled Test 2021-06-09 00:00:00 Urine screening for [facility] protein (procedure) [code = 559889854] Future Scheduled Test 2021-06-03 00:00:00 DM Retinal Exam [facility] (Yearly) [code = DM Retinal Exam (Yearly)] Future Scheduled Test 2021-04-20 00:00:00 DM Foot Exam (Yearly) [facility] [code = DM Foot Exam (Yearly)] Future Scheduled Test 2020-08-28 00:00:00 Hemoglobin A1c [facility] measurement (procedure) [code = [id number]] Future Scheduled Test 2020-07-23 00:00:00 IMM Influenza Seasonal [facility] Jul to December (>/= 19 yrs) [code = IMM Influenza Seasonal Jul to December (>/= 19 yrs)] Encounters Start End Encounter Admission Attending Care Care Encounter Source Date/Time Date/Time Type Type Clinicians Facility Department ID 2019-05-28 Inpatient [facility] [id number] H arris 07:42:50 Health 2019-03-22 Inpatient [facility] [id number] H arris 15:34:36 Health 2019-03-20 Inpatient [facility] [id number] H arris 11:49:10 Health 2019-03-20 Inpatient [facility] [id number] H arris 08:44:24 Health 2019-03-18 Inpatient [facility] [id number] H arris 11:55:01 Health 2019-03-14 Inpatient [facility] [id number] H arris 19:08:55 [facility] 2019-03-11 Inpatient [facility] [id number] arris 20:27:58 Health 2019-03-11 Inpatient [facility] [id number] H arris 07:12:46 Health 2019-01-27 Inpatient [facility] [id number] H arris 04:37:57 Health 2020-03-03 2020-03-03 Outpatient [facility] [id number] [place] 00:00:00 00:00:00 Health 2020-01-21 2020-01-21 Outpatient [facility] [id number] [place] 00:00:00 00:00:00 Health 2020-01-16 2020-01-16 Outpatient [facility] [id number] [place] 00:00:00 00:00:00 Health 2020-01-16 2020-01-16 Outpatient [facility] [id number] [place] 00:00:00 00:00:00 Health 2019-12-24 2019-12-24 Outpatient [facility] [id number] [place] 14:55:09 14:55:09 Health 2019-12-13 2019-12-13 Outpatient [facility] [id number] [place] 00:00:00 00:00:00 Health 2019-12-04 2019-12-04 Outpatient [facility] [id number] [place] 00:00:00 00:00:00 Health 2019-11-29 2019-11-29 Outpatient [facility] [id number] [place] 14:42:17 14:42:17 Health 2019-11-28 2019-11-28 Outpatient [facility] [id number] [place] 00:00:00 00:00:00 [facility] 2019-11-20 2019-11-20 Emergency [facility] [id number] Rod 11:57:41 11:57:41 Health 2019-11-12 2019-11-12 Outpatient [facility] [id number] [place] 14:49:12 14:49:12 [facility] 2019-11-06 2019-11-06 Outpatient [facility] [id number] [place] 00:00:00 00:00:00 [facility] 2019-11-01 2019-11-01 Outpatient [facility] [id number] [place] 12:56:10 12:56:10 [facility] 2019-10-25 2019-10-25 Outpatient [facility] [id number] [place] 11:58:39 11:58:39 [facility] 2019-10-24 2019-10-24 Outpatient [facility] [id number] [place] 13:07:00 13:07:00 [facility] 2019-10-10 2019-10-10 Outpatient [facility] [id number] [place] 00:00:00 00:00:00 [facility] 2019-10-10 2019-10-10 Outpatient [facility] [id number] [place] 00:00:00 00:00:00 [facility] 2019-10-08 2019-10-08 Outpatient [facility] [id number] [place] 09:56:49 09:56:49 [facility] 2019-10-07 2019-10-07 Outpatient [facility] [id number] [place] 11:40:31 11:40:31 [facility] 2019-10-07 2019-10-07 Outpatient [facility] [id number] [place] 00:00:00 00:00:00 [facility] 2019-10-03 2019-10-03 Outpatient [facility] [id number] [place] 13:43:13 13:43:13 [facility] 2019-09-24 2019-09-24 Outpatient [facility] [id number] [place] 13:08:09 13:08:09 [facility] 2019-09-24 2019-09-24 Outpatient [facility] [id number] [place] 00:00:00 00:00:00 [facility] 2019-09-12 2019-09-12 Outpatient [facility] [id number] [place] 00:00:00 00:00:00 [facility] 2019-08-28 2019-08-28 Outpatient [facility] [id number] [place] 10:59:01 10:59:01 Health 2019-08-28 2019-08-28 Outpatient [facility] [id number] [place] 00:00:00 00:00:00 Health 2019-08-15 2019-08-15 Outpatient [facility] [id number] [place] 11:33:37 11:33:37 Health 2019-08-06 2019-08-06 Outpatient [facility] [id number] [place] 14:11:00 14:11:00 [facility] 2019-08-02 2019-08-02 Emergency [facility] [id number] Rod 10:24:06 10:24:06 Health 2019-07-30 2019-07-30 Emergency [facility] [id number] Rod 08:18:33 08:18:33 Health 2019-07-24 2019-07-24 Outpatient [facility] [id number] [place] 10:18:19 10:18:19 Health 2019-07-24 2019-07-24 Outpatient [facility] [id number] [place] 08:54:56 08:54:56 [facility] 2019-07-24 2019-07-24 Outpatient [facility] [id number] [place] 00:00:00 00:00:00 [facility] 2019-07-18 2019-07-18 Outpatient [facility] [id number] [place] 09:43:11 09:43:11 [facility] 2019-07-17 2019-07-17 Emergency [facility] [id number] [place] 08:08:51 08:08:51 Health 2019-06-29 2019-06-29 Emergency [facility] [id number] [place] 05:26:04 05:26:04 [facility] 2019-06-21 2019-06-21 Outpatient [facility] [id number] [place] 07:40:31 07:40:31 [facility] 2019-06-19 2019-06-19 Outpatient [facility] [id number] [place] 00:00:00 00:00:00 [facility] 2019-06-18 2019-06-18 Emergency [facility] [id number] [place] 05:04:22 05:04:22 Health 2019-06-14 2019-06-14 Outpatient [facility] [id number] [place] 08:55:55 08:55:55 Health 2019-06-07 2019-06-07 Outpatient [facility] [id number] [place] 15:28:45 15:28:45 Health 2019-06-07 2019-06-07 Emergency [facility] [id number] Rod 04:44:10 04:44:10 Health 2019-06-05 2019-06-05 Outpatient [facility] [id number] [place] 13:59:55 13:59:55 [facility] 2019-06-05 2019-06-05 Outpatient [facility] [id number] [place] 08:05:28 08:05:28 [facility] 2019-06-04 2019-06-04 Emergency [facility] [id number] [place] 07:51:05 07:51:05 [facility] 2019-05-30 2019-05-30 Outpatient [facility] [id number] [place] 00:00:00 00:00:00 [facility] 2019-05-30 2019-05-30 Outpatient [facility] [id number] [place] 00:00:00 00:00:00 [facility] 2019-05-27 2019-05-27 Inpatient [facility] [id number] [place] 12:09:34 12:09:34 [facility] 2019-05-24 2019-05-24 Outpatient [facility] [id number] [place] 11:05:30 11:05:30 [facility] 2019-05-21 2019-05-21 Outpatient [facility] [id number] [place] 07:47:54 07:47:54 [facility] 2019-05-17 2019-05-17 Outpatient [facility] [id number] [place] 09:32:58 09:32:58 [facility] 2019-05-14 2019-05-14 Emergency [facility] [id number] [place] 10:44:49 10:44:49 [facility] 2019-05-13 2019-05-13 Outpatient [facility] [id number] [place] 07:37:16 07:37:16 [facility] 2019-05-13 2019-05-13 Outpatient [facility] [id number] [place] 00:00:00 00:00:00 [facility] 2019-05-01 2019-05-01 Outpatient [facility] [id number] [place] 08:56:32 08:56:32 [facility] 2019-04-19 2019-04-19 Outpatient [facility] [id number] [place] 10:28:27 10:28:27 [facility] 2019-04-18 2019-04-18 Outpatient [facility] [id number] [place] 14:37:32 14:37:32 [facility] 2019-04-18 2019-04-18 Outpatient [facility] [id number] [place] 14:26:13 14:26:13 [facility] 2019-03-26 2019-03-26 Outpatient [facility] [id number] [place] 00:00:00 00:00:00 [facility] 2019-03-20 2019-03-20 Outpatient [facility] [id number] [place] 00:00:00 00:00:00 [facility] 2019-03-13 2019-03-13 Outpatient [facility] [id number] [place] 00:00:00 00:00:00 [facility] 2019-03-08 2019-03-08 Emergency [facility] [id number] [place] 21:21:03 21:21:03 Health 2019-03-08 2019-03-08 Emergency [facility] [id number] [place] 19:33:22 19:33:22 [facility] 2019-03-08 2019-03-08 Inpatient [facility] [id number] [place] 19:05:11 19:05:11 [facility] 2019-03-08 2019-03-08 Outpatient [facility] [id number] [place] 18:09:55 18:09:55 [facility] 2019-03-07 2019-03-07 Outpatient [facility] [id number] [place] 12:22:32 12:22:32 Health 2019-03-07 2019-03-07 Outpatient [facility] [id number] [place] 11:26:29 11:26:29 [facility] 2019-03-07 2019-03-07 Outpatient [facility] [id number] [place] 10:15:55 10:15:55 [facility] 2019-02-19 2019-02-19 Outpatient [facility] [id number] [place] 11:19:59 11:19:59 [facility] 2019-02-14 2019-02-14 Outpatient [facility] [id number] [place] 15:14:52 15:14:52 Health 2019-02-14 2019-02-14 Outpatient [facility] [id number] [place] 14:54:31 14:54:31 Health 2019-02-14 2019-02-14 Outpatient [facility] [id number] [place] 13:22:44 13:22:44 Health 2019-02-14 2019-02-14 Outpatient [facility] [id number] [place] 00:00:00 00:00:00 [facility] 2019-01-24 2019-01-24 Outpatient [facility] [id number] [place] 10:51:56 10:51:56 Health 2019-01-24 2019-01-24 Outpatient [facility] [id number] [place] 08:07:36 08:07:36 Health 2019-01-24 2019-01-24 Outpatient [facility] [id number] [place] 07:25:49 07:25:49 Health 2019-01-23 2019-01-23 Emergency [facility] [id number] [place] 21:13:52 21:13:52 Health 2019-01-23 2019-01-23 Inpatient [facility] [id number] [place] 20:27:29 20:27:29 Health Results Test Description Test Time Test Comments Results Result [facility] e Comments DIABETIC FOOT EXAM 2020-04-20 Moni Savage NP [place] 17:00:07 04/20/2020 Health 5:39 PMDiabetic Foot Exam was performed at 04/20/2020 5:16 PM. Right foot sensation is normal, right foot pulses are normal, right foot appearance is normal. Left foot sensation is normal, left foot pulses are normal, left foot appearance is normal. POCT GLUCOSE POC docked device 2019-11-28 06:23:00 Test Item Value Reference Range Interpretation Comme nts Glucose POC (test code = 87100898) 197 mg/dL 74-106 H Lab Interpretation (test code = 99142-1) Abnormal [place] [address] LEAD [id number] 05:41:5312 LEAD EKG FOR [facility] Test Date: [id number] Name: ROSALINE ODNE Department: 6520Patient ID: [id number] Room: Gender: Burglar Alarm Installer: DIZZINESSDOB: 1970 Requested By: MARIANGEL Banks Number: [id number] Reading MD: Lyn Mariscal MeasurementsIntervals [place] Rate: 80 P: 55PR: 174 QRS: -9QRSD: 92 T: 57QT: 401 QTc: 465 Interpretive StatementsSINUS RHY THMPOSSIBLE LEFT ATRIAL ENLARGEMENTPOSSIBLE LEFT VENTRICULAR HYPERTROPHYPOSSIBLE SEPTAL MYOCARDIAL INFARCTION, OF INDETERMINATE AGEElectronically Signed On 11-22-2019 5:41:51 NETWORK SPECIALIST by Lyn [facility] BMP POC docked device 2019-11-20 12:52:00 Test Item Value Reference Range Interpretation Comments Sodium POC (test code = 134 mmol/L 136-145 L 42551127) Potassium POC (test code = 3.9 mmol/L 3.5-5.1 24501337) Chloride POC (test code = 92 mmol/L 98-107 L 76318135) TCO2 POC (test code = 34 mmol/L 21-32 H 95149253) Urea Nitrogen POC (test code 23 mg/dL 7-18 H = 43079583) Creatinine POC (test code = 4.3 mg/dL 0.6-1.3 H 21340178) Glucose POC (test code = 207 mg/dL 74-106 H 38456505) Ionized Calcium POC (test 1.07 mmol/L 1.15-1.29 L code = 71360434) GFR, Estimated (test code = 15 >=90 mL/min/1.73 m2 L 15158915) Hemoglobin POC (test code = 12.9 g/dL 12-16 67871856) Hematocrit POC (test code = 38.0 % 37-47 72863230) Lab Interpretation (test code Abnormal = 59228-3) [place] [id number] 17:48:00 Test Item Value Reference Range Interpretation Comments Chloride (test code = 2075-0) 98 mmol/L 98-107 Lab Interpretation (test code = Normal 38909-3) [facility] 17:48:00 Test Item Value Reference Range Interpretation Comments Glucose (test code = 58944654) 234 mg/dL 74-106 H Lab Interpretation (test code = Abnormal 46188-8) [facility], [id number] 17:48:00 Test Item Value Reference Range Interpretation Comments Calcium, Ionized (test code = 1.02 mmol/L 1.15-1.29 L 66446374) Lab Interpretation (test code = Abnormal 88097-1) [facility] HillSodium/Jgzsgosci9350-21-06 17:48:00 Test Item Value Reference Range Interpretation Comments Potassium (test code = 2823-3) 4.4 mmol/L 3.5-5.1 Sodium (test code = 2951-2) 132 mmol/L 136-145 L Lab Interpretation (test code = Abnormal 82681-5) [facility] with Talcvrfwfe7030-26-51 17:48:00 Test Item Value Reference Range Interpretation Comments Temperature (test code = 37.0 degrees C 96147127) pH, Arterial (test code = 7.34 7.35-7.45 L 70221905) pCO2, Arterial (test code = 43.1 32.0- 45.0 mm Hg 55486536) pO2, Arterial (test code = 68 72- 104 mm Hg L 33870426) Base Excess, Arterial (test code -2.4 mmol/L -2.5-2.5 = 76075859) HCO3, Arterial (test code = 22.5 mmol/L 22-26 54563594) % Sat, Arterial (test code = 91.0 % 95-99 L 40250096) Arterial Hemoglobin (test code = 12.7 g/dL 14-18 L 71049499) Lab Interpretation (test code = Abnormal 15749-1) [facility] Hill[facility] and Ocobut9571-31-01 12:56:00 Test Item Value Reference Range Interpretation Comments Specimen Expiration (test 08/05/2019 23:59 code = 91939708) ABO/RH (test code = O POS 72674818) Antibody Screen (test code = NEG 85530243) [place] [address] LEAD [id number] 10:02:0712 LEAD EKG FOR [facility] Test Date: [id number] Name: ROSALINE LEAL ODEN Department: 6520Patient ID: [id number] Room: Gender: Burglar Alarm Installer: RGDOB: 1970 Requested By: BEVERLY Pool Number: [id number] Reading MD: José Miguel PICKETT MeasurementsIntervals [place] Rate: 75 P: 58PR: 135 QRS: 0QRSD: 101 T: 37QT: 409 QTc: 459 Interpretive StatementsSINUS RHYTHMNormal ECGElectronically Signed On 07-30-2019 10:02:05 CDT by José Miguel PICKETT [facility] Metabolic [id number] 12:31:00 Test Item Value Reference Range Interpretation Comments Sodium (test code = 2951-2) 136 mmol/L 136-145 Potassium (test code = 5.2 mmol/L 3.5-5.1 H 2823-3) Chloride (test code = 2075-0) 108 mmol/L 98-107 H CO2 (test code = 94182906) 15 mmol/L 21-31 L Urea Nitrogen (test code = 131.0 mg/dL 7-25 94094260) Creatinine (test code = 10.0 mg/dL 0.7-1.3 01001627) Glucose (test code = 130 mg/dL 70-110 H 42212584) Calcium (test code = 8.2 mg/dL 8.6-10.3 L 94557599) GFR, Estimated (test code = 6 >=90 mL/min/1.73 m2 L 12192938) Anion Gap (test code = 13 mmol/L 5-16 73279063) Lab Interpretation (test code Abnormal = 06124-3) [place] [address] LEAD [id number] 15:56:2412 LEAD EKG FOR [facility] Test Date: [id number] Name: ROSALINE ODEN Department: Room: Gender: M Burglar Alarm Installer: : 1970 Requested By: BEVERLY Pool Number: [id number] Reading MD: Lyn Mariscal MeasurementsIntervals [place] Rate: 76P: 38PR: 175 QRS: -17QRSD: 104 T: 16QT: 412 QTc: 463 Interpretive StatementsSINUS RHYTHMElectronically Signed On 07-17-2019 15:56:21 CDT by Lyn Mariscal [facility]erged with [facility] VBG POC docked [id number] 09:32:00 Test Item Value Reference Range Interpretation Comments pH, Surinder POC (test code = 7.35 7.33-7.43 78501544) HCO3, Surinder POC (test code = 16 mmol/L 22-26 L 30465723) TCO2 POC (test code = 73545935) 17 mmol/L 21-32 L PO2, Venous POC (BKR) (test code 161 50- 75 mm Hg H = 64111288) pCO2,Surinder POC (test code = 28.7 38- 50 mmHg L 40408644) Base Deficit, Surinder POC (test code -10 = 29049953) Param's Test (test code = MICHAEL 19750430) Sample Type (test code = IVEN 27975030) Site (test code = 26487442) RRADIA O2 Delivery Device (test code = ROOMAI 59051088) Lactic Acid POC (test code = 0.67 mmol/L 0.4-2 96735741) % Sat, Surinder POC (test code = 99 % 19379880) Lab Interpretation (test code = Abnormal 32585-3) [place] [address] LEAD [id number] 08:58:5812 LEAD EKG FOR [facility] Test Date: [id number] Name: ROSALINE ODEN Department: Room: Gender: M [place] Alarm Installer: [id number]: 1970 Requested By: CHAYA Longoria Number: [id number] Reading MD: José Miguel PICKETT MeasurementsIntervals [place] Rate: 91 P: 56PR: 185 QRS: -15QRSD: 102 T: 48QT: 395 QTc: 487 Interpretive StatementsSINUS RHYTHMMINIMAL VOLTAGE CRITERIA FOR LVH, CONSIDER NORMAL VARIANTBorderline prolonged QTcNon-specific ST-T changesAbnormal ECGElectronically Signed On 06-30-2019 8:58:56 CDT by José Miguel Caldera HealthHepatitis [id number] 20:28:00 Test Item Value Reference Range Interpretation Comments Hepatitis C Virus (HCV) Antibody Negative Negative (test code = 19478-1) Hep B Surface Ag (test code = Negative Negative 5196-1) Hep A Vir Ab IgM (test code = Negative Negative 41130-5) Hep B Core Ab IgM (test code = Negative Negative 73200-5) Lab Interpretation (test code = Normal 86796-3) [facility], [id number] 20:28:00 Test Item Value Reference Range Interpretation Comments Hep B Core Ab Total (test code = Negative Negative 59309-2) Lab Interpretation (test code = Normal 70176-0) [facility] [id number] 20:28:00 Test Item Value Reference Range Interpretation Comments Hep B Surf Ab Result <4.23 Refer to result Nega tive: < 8.00 (test code = 48270655) comment. mIU/mL mI U/mL Grayzone: > = 8.00 mIU/mL t o < 12.00 mIU/mL Positive: > = 12.00 mIU/mL Hep B Surf Ab Negative Negative Intepretation (test code = 73314-2) [facility] HillZibjtdIicggxsds1596-04-37 14:08:00 Test Item Value Reference Range Interpretation Comments Magnesium (test code = 13953377) 2.7 mg/dL 1.9-2.7 Lab Interpretation (test code = Normal 11490-0) [id number] 14:08:00 Test Item Value Reference Range Interpretation Comments Phosphorus (test code = 2777-1) 5.4 mg/dL 2.5-5 H Lab Interpretation (test code = Abnormal 92655-0) [facility] Hill[facility], [id number] 08:19:00 Test Item Value Reference Range Interpretation Comments Neutrophil (test code = 12279714) 45.0 % 34-67.9 Lymphs (test code = 30346628) 20.0 % 21.8-50 L Monocytes (test code = 04372510) 4.0 % 5.3-12 L Eos (test code = 94901479) 28.0 % 0.8-5 H Basos (test code = 80774424) 3.0 % 0.2-1.2 H Neutrophils (Absolute) (test code = 3.69 K/uL 1.78-5.36 38011220) Lymphs (Absolute) (test code = 1.64 K/uL 1.32-3.57 53394583) Monocytes(Absolute) (test code = 0.33 K/uL 0.3-0.82 32089004) Eos (Absolute) (test code = 2.30 K/uL 0.04-0.54 H 79011303) Baso (Absolute) (test code = 0.25 K/uL 0.01-0.08 H 02157476) Ovalocyte (test code = 85086618) 2+ None seen A Schistocyte (test code = 36580143) 1+ None seen A Cells Counted (test code = 85528458) Lab Interpretation (test code = Abnormal 61141-3) [facility]
[2020-06-28] MEDS ORDERED: CEFTRIAXONE/SWI 1gm 1 GM/10 ML SYR ONE (19:34)
[2020-06-28 19:42] LABS: Protime INR 1.05
[2020-06-28 19:44] LABS: Absolute Lymphocytes (CBC) 0.4 K/uL (0.7-4.9); Basophils % 0.5 % (0-1.3); Hematocrit 32.6 % (39.6-49.0); Lymphocytes % 3.2 % (15.3-44.8); MPV 8.8 fL (7.6-11.3); RBC Red Blood Cell Count 3.75 M/uL (4.33-5.43)
--- NOTE | 2020-06-28 19:55 | RAD REPORT ---
EXAM DESCRIPTION: Bernard Single View06/28/2020 7:17 pm CLINICAL HISTORY: fever COMPARISON: none FINDINGS: The lungs appear clear of acute infiltrate. The heart is normal size IMPRESSION: No acute abnormalities displayed
[2020-06-28 20:03] LABS: ALT/SGPT 20 U/L (12-78); AST/SGOT 11 U/L (15-37); Albumin 3.6 g/dL (3.4-5.0); Alkaline Phosphatase 89 U/L (45-117); Amylase 42 U/L (25-115); BUN Blood Urea Nitrogen 52 mg/dL (7-18); Bicarbonate 27 mmol/L (21-32); Bilirubin Direct 0.1 mg/dL (0-0.2); Bilirubin Total 0.4 mg/dL (0.2-1.0); CKMB Creatine Kinase MB 1.2 ng/mL (0.3-3.6); Creatine Phosphokinase 238 U/L (39-308); Glucose Level 170 mg/dL (74-106); Lipase 90 U/L (73-393); Potassium 4.1 mmol/L (3.5-5.1); Protein, Total 7.3 g/dL (6.4-8.2); Sodium Level 138 mmol/L (136-145); Troponin (Emerg Dept Use Only) < 0.02 ng/mL (0.0-0.045)
[2020-06-28 20:11] LABS: Anisocytosis 1+; Blood Morphology Comment NOTED (NOT SEEN); Hypochromasia 1+; Platelet Estimate DECR; White Blood Cell Scan OK (OK)
[2020-06-28 22:07] LABS: Urine Bacteria <20 /HPF (NONE SEEN); Urine Culture Reflex Order NOT NEEDED; Urine Sperm PRESENT (NONE SEEN)
[2020-06-28 22:10] LABS: Urine Blood 2+ (NEG); Urine Glucose TRACE (NEG); Urine Protein 3+ (NEG)
[2020-06-28] MEDS ORDERED: ACETAMINOPHEN 500 MG TAB ONE (22:22)
--- NOTE | 2020-06-28 23:42 | ER ---
Nurse's Notes [facility] Name: eTrry Woodson Age: 50 yrs Sex: Male : 1970 Arrival Date: 06/28/2020 Time: 18:56 Bed 5 Private MD: Diagnosis: Fever, unspecified Presentation: 06/28 18:57 Chief complaint: EMS states: Fever this morning and then again this afternoon, Took jl7 1000 mg Tylenol PO at 1730, denies cough, denies N/V/D, denies any other symptoms, Maori speaking only, son is at bedside. Coronavirus screen: Client denies travel out of the [place] in the last 14 days. fever, Client presents with at least one sign or symptom that may indicate coronavirus-19. Standard/surgical mask placed on the client. Provider contacted for isolation considerations. Ebola Screen: No symptoms or risks identified at this time. Initial Sepsis Screen: Does the patient meet any 2 criteria? RR > 20 per min. Temp <36.0*C (96.8*F)) or > 38.3*C (100.9*F). HR > 90 bpm. Yes Does the patient have a suspected source of infection? No. Patient's initial sepsis screen is negative. Risk Assessment: Do you want to hurt yourself or someone else? Patient reports no desire to harm self or others. Onset of symptoms was June 28, 2020. Care prior to arrival: Medication(s) given: Tylenol, 1000 mg. 18:57 Method Of Arrival: EMS: [facility] 18:57 Acuity: CARO 3 jl7 Triage Assessment: 19:04 General: Appears in no apparent distress. uncomfortable, ill, Behavior is calm, jl7 cooperative, appropriate for age. Pain: Denies pain. Neuro: Level of Consciousness is awake, alert, obeys commands, Oriented to person, place, time, situation. Cardiovascular: Patient's skin is warm and dry. Respiratory: Airway is patent Respiratory effort is even, unlabored, Respiratory pattern is symmetrical, tachypnea Denies cough, shortness of breath. GI: Patient currently denies diarrhea, nausea, vomiting. Derm: Skin is dry, Skin is normal, Skin temperature is hot. Historical: - Allergies: 19:04 No Known Allergies; jl7 - Home Meds: 19:04 carvedilol oral oral [Active]; Nifedipine Oral [Active]; gabapentin oral oral [Active]; jl7 - PMHx: 19:04 Dialysis; Diabetes - NIDDM; ESRD; Hypertension; jl7 - Immunization history:: Adult Immunizations up to date. - Social history:: Smoking status: Patient denies any tobacco usage or history of. Screenin:10 Abuse screen: Denies threats or abuse. Nutritional screening: No deficits noted. mt2 Tuberculosis screening: No symptoms or risk factors identified. Fall Risk None identified. Assessment: 19:57 Reassessment: Patient and/or family updated on plan of care and expected duration. Pain mt2 level reassessed. Patient is alert, oriented x 3, equal unlabored respirations, skin warm/dry/pink. General: Appears comfortable, Behavior is cooperative. Pain: Denies pain. 20:10 Reassessment: Patient and/or family updated on plan of care and expected duration. Pain mt2 level reassessed. Patient is alert, oriented x 3, equal unlabored respirations, skin warm/dry/pink. General: Appears comfortable, Behavior is cooperative. Pain: Denies pain. 21:14 Reassessment: Patient and/or family updated on plan of care and expected duration. Pain mg2 level reassessed. Patient is alert, oriented x 3, equal unlabored respirations, skin warm/dry/pink. Reassessment: ATTEMPTED TO STRAIGHT CATH PT. PT MEATUS NONEXISTENCE. TRIED 3X. PROVIDER NOTIFIED. General: Appears comfortable, Behavior is cooperative. Pain: Denies pain. 22:12 Reassessment: Patient appears in no apparent distress at this time. No changes from mg2 previously documented assessment. 23:53 Reassessment: Patient and/or family updated on plan of care and expected duration. Pain mt2 level reassessed. Patient is alert, oriented x 3, equal unlabored respirations, skin warm/dry/pink. Patient denies pain at this time. General: Appears comfortable, Behavior is cooperative. Pain: Denies pain. Vital Signs: 18:57 BP 186 / 94; Pulse 105; Resp 24; Temp 101.9; Pulse Ox 94% ; jl7 19:58 BP 175 / 90; Pulse 100; Resp 16; Temp 101.1; Pulse Ox 95% ; Pain 0/10; mt2 20:10 BP 155 / 84; Pulse 98; Resp 17; Pulse Ox 96% on R/A; Weight 61.23 kg; Pain 0/10; mt2 21:15 BP 160 / 93; Pulse 97; Temp 100.4; Pulse Ox 95% ; Pain 0/10; mg2 22:12 BP 157 / 90; Pulse 103; Resp 18; Temp 102.4(O); Pulse Ox 98% on R/A; mt2 23:18 BP 145 / 76; Pulse 87; Resp 18; Temp 101.8; Pulse Ox 94% on R/A; mg2 23:53 BP 145 / 78; Pulse 83; Resp 16; Temp 100; Pulse Ox 96% ; Pain 0/10; mt2 ED Course: 18:56 Patient arrived in ED. jl7 18:57 Jaziel Mcpherson NP is PHCP. pm1 18:57 Radha Shaw MD is Attending Physician. pm1 19:02 Triage completed. jl7 19:04 Arm band placed on right wrist. jl7 19:07 Vesta Gomez RN is Primary Nurse. mt2 19:10 Patient has correct armband on for positive identification. Placed in gown. Bed in low mt2 position. Call light in reach. Side rails up X 1. 19:10 Maintain EMS IV. Dressing intact. Good blood return noted. Site clean \T\ dry. Gauge \T\ mt 2 site: 18 right forearm. 19:17 Chest Single View XRAY In Process Unspecified. EDMS 19:30 Second set of blood cultures drawn by nj. mt2 19:50 Strep Sent. ds4 19:50 Flu Sent. ds4 19:51 Amylase Sent. ds4 19:51 Basic Metabolic Panel Sent. ds4 19:51 CBC Smear Scan Sent. ds4 19:51 SARS-COV-2 RT PCR Sent. ds4 19:51 Procalcitonin Sent. ds4 23:20 No provider procedures requiring assistance completed. mg2 23:54 IV discontinued, intact, bleeding controlled, No redness/swelling at site. Pressure mt2 dressing applied. Administered Medications: 19:30 Drug: Rocephin 1 grams Route: IV; Rate: calculated rate; Site: right forearm; mt2 20:01 Follow up: Response: No adverse reaction; IV Status: Completed infusion mt2 22:18 Drug: Tylenol 1000 mg Route: PO; mt2 23:54 Follow up: Response: No adverse reaction; Temperature is decreased mt2 Outcome: 23:42 Discharge ordered by . pm1 23:53 Discharged to home ambulatory, with family. mt2 23:53 Condition: good 23:53 Discharge instructions given to patient, family, Instructed on discharge instructions, follow up and referral plans. medication usage, Demonstrated understanding of instructions, follow-up care, medications. 23:54 Patient left the ED. mt2 Signatures: Dispatcher [employer] EDMS Les Parsons ds4 Jaziel Mcpherson NP COMPOSING ROOM MACHINIST pm1 Tierney Mcgill RN RN jl7 Randall Marie RN RN mg2 Vesta Gomez RN RN mt2 Corrections: (The following items were deleted from the chart) 22:19 22:12 BP 157 / 90; Pulse 103bpm; Resp 18bpm; Pulse Ox 98% RA; mg2 mt2 06/29 02:40 09/06 20:10 BP 155 / 84; Pulse 98bpm; Resp 17bpm; Pulse Ox 96% RA; Pain 0/10; mt2 mt2
--- NOTE | 2020-06-28 23:43 | EDPHYS ---
Physician Documentation [facility] Name: Terry Woodson Age: 50 yrs Sex: Male : 1970 Arrival Date: 06/28/2020 Time: 18:56 Bed 5 Private MD: ED Physician Radha Shaw HPI: 06/28 19:16 This 50 yrs old Male presents to ER via EMS with complaints of Fever. pm1 19:16 The patient reports fever, not measured (subjective). Onset: The symptoms/episode pm1 began/occurred this morning. Modifying factors: there are no obvious modifying factors. Associated signs and symptoms: Pertinent positives: chills, body aches, Pertinent negatives: abdominal pain, chest pain, cough, diarrhea, earache, headache, nausea, runny nose, shortness of breath, sore throat, vomiting. Patient woke up this AM with a subjective fever. He took some Tylenol, felt better and went to the beach. On the way home from the beach he felt feverish with body aches so he came to the ER to be evaluated. he is a dialysis patient [facility] and is complaint with his treatments. 19:16 Dialysis treatment for about 1 year. Still creates urine. pm1 Historical: - Allergies: 19:04 No Known Allergies; jl7 - Home Meds: 19:04 carvedilol oral oral [Active]; Nifedipine Oral [Active]; gabapentin oral oral [Active]; jl7 - PMHx: 19:04 Dialysis; Diabetes - NIDDM; ESRD; Hypertension; jl7 - Immunization history:: Adult Immunizations up to date. - Social history:: Smoking status: Patient denies any tobacco usage or history of. ROS: 19:16 Eyes: Negative for injury, pain, redness, and discharge, ENT: Negative for injury, pm1 pain, and discharge, Neck: Negative for injury, pain, and swelling, Cardiovascular: Negative for chest pain, palpitations, and edema, Respiratory: Negative for shortness of breath, cough, wheezing, and pleuritic chest pain, Abdomen/GI: Negative for abdominal pain, nausea, vomiting, diarrhea, and constipation, Back: Negative for injury and pain, : Negative for injury, bleeding, discharge, and swelling, MS/Extremity: Negative for injury and deformity, Skin: Negative for injury, rash, and discoloration, Neuro: Negative for headache, weakness, numbness, tingling, and seizure. 19:16 Constitutional: Positive for body aches, chills, fever, Negative for poor PO intake. Exam: 19:16 Head/Face: Normocephalic, atraumatic. Cardiovascular: Regular rate and rhythm with a pm1 normal S1 and S2. No gallops, murmurs, or rubs. Normal PMI, no JVD. No pulse deficits. Respiratory: Lungs have equal breath sounds bilaterally, clear to auscultation and percussion. No rales, rhonchi or wheezes noted. No increased work of breathing, no retractions or nasal flaring. Abdomen/GI: Soft, non-tender, with normal bowel sounds. No distension or tympany. No guarding or rebound. No evidence of tenderness throughout. Back: No spinal tenderness. No costovertebral tenderness. Full range of motion. Skin: Warm, dry with normal turgor. Normal color with no rashes, no lesions, and no evidence of cellulitis. MS/ Extremity: Pulses equal, no cyanosis. Neurovascular intact. Full, normal range of motion. 19:16 Constitutional: The patient appears in no acute distress, alert, awake, comfortable, non-toxic, well developed, well hydrated, well groomed, well nourished, febrile. 19:16 Neuro: Exam negative for acute changes, Orientation: is normal, Mentation: is normal, Motor: is normal, moves all fours, Sensation: is normal, no obvious gross deficits. Vital Signs: 18:57 BP 186 / 94; Pulse 105; Resp 24; Temp 101.9; Pulse Ox 94% ; jl7 19:58 BP 175 / 90; Pulse 100; Resp 16; Temp 101.1; Pulse Ox 95% ; Pain 0/10; mt2 20:10 BP 155 / 84; Pulse 98; Resp 17; Pulse Ox 96% on R/A; Weight 61.23 kg; Pain 0/10; mt2 21:15 BP 160 / 93; Pulse 97; Temp 100.4; Pulse Ox 95% ; Pain 0/10; mg2 22:12 BP 157 / 90; Pulse 103; Resp 18; Temp 102.4(O); Pulse Ox 98% on R/A; mt2 23:18 BP 145 / 76; Pulse 87; Resp 18; Temp 101.8; Pulse Ox 94% on R/A; mg2 23:53 BP 145 / 78; Pulse 83; Resp 16; Temp 100; Pulse Ox 96% ; Pain 0/10; mt2 MDM: 19:03 Patient medically screened. 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 Therefore I called Dr. Beltran for advice for the best management for the patient. Patient's labs are negative and he does not appear septic. Negative chest xray and urine. No signs of cellulitis. No pain, inflammation, or erythema at left arm fistula. Covid and flu test came back negative but I suspect a false negative. Dr. Beltran recommended that we can admit the patient here for dialysis treatment. 23:36 Data reviewed: vital signs. Data interpreted: Pulse oximetry: on room air is 95 %. pm1 Interpretation:. ED course: Patient was offered to be admission here to ensure that he get dialysis treatment tomorrow. The patient and son decided that they want to go to their dialysis center tomorrow and if they have any difficulties they will go to the ER in the area. 06/28 19:04 Order name: Amylase, Serum pm06/28 19:04 Order name: Basic Metabolic Panel pm1 06/28 19:04 Order name: Blood Culture Adult (2) pm1 06/28 19:04 Order name: CBC with Diff; Complete Time: 20:26 pm06/28 19:04 Order name: Ckmb; Complete Time: 20:26 pm06/28 19:04 Order name: CPK; Complete Time: 20:26 pm06/28 19:04 Order name: Lactate; Complete Time: 20:26 pm06/28 19:04 Order name: LFT's; Complete Time: 20:26 pm06/28 19:04 Order name: Lipase; Complete Time: 20:26 pm06/28 19:04 Order name: Procalcitonin; Complete Time: 21:07 pm1 06/28 19:04 Order name: Protime (+inr); Complete Time: 19:51 pm06/28 19:04 Order name: Ptt, Activated; Complete Time: 19:51 pm1 06/28 19:04 Order name: Troponin (emerg Dept Use Only); Complete Time: 20:26 pm1 06/28 19:04 Order name: Urine Microscopic Only; Complete Time: 22:11 pm1 06/28 19:04 Order name: Chest Single View XRAY; Complete Time: 20:26 pm1 06/28 19:04 Order name: Accucheck; Complete Time: 19:50 pm1 06/28 19:04 Order name: Cardiac monitoring; Complete Time: 19:06 pm1 06/28 19:04 Order name: EKG - Nurse/Tech; Complete Time: 19:07 pm1 06/28 19:04 Order name: Flu; Complete Time: 20:26 pm1 06/28 19:04 Order name: Strep; Complete Time: 20:26 pm1 06/28 19:05 Order name: Amylase; Complete Time: 20:26 EDMS 06/28 19:05 Order name: Basic Metabolic Panel; Complete Time: 20:26 EDMS 06/28 19:23 Order name: Glucose, Ancillary Testing; Complete Time: 19:25 EDMS 06/28 19:38 Order name: SARS-COV-2 RT PCR; Complete Time: 21:07 EDMS 06/28 19:47 Order name: CBC Smear Scan; Complete Time: 20:26 EDMS 06/28 19:59 Order name: Throat Culture EDMS 06/28 21:31 Order name: Urine Dipstick--Ancillary (enter results); Complete Time: 22:11 ar5 06/28 19:04 Order name: IV Saline Lock - Large Bore; Complete Time: 19:22 pm1 06/28 19:04 Order name: Labs collected and sent; Complete Time: 19:22 pm1 06/28 19:04 Order name: O2 Per Protocol; Complete Time: 19:07 pm1 06/28 19:04 Order name: O2 Sat Monitoring; Complete Time: 19:22 pm1 06/28 19:04 Order name: Urine Dipstick-Ancillary (obtain specimen); Complete Time: 19:22 pm1 06/28 19:04 Order name: Document PUI#; Complete Time: 19:29 pm1 06/28 19:04 Order name: Droplet/Contact Precautions; Complete Time: 19:28 pm1 Administered Medications: 19:30 Drug: Rocephin 1 grams Route: IV; Rate: calculated rate; Site: right forearm; mt2 20:01 Follow up: Response: No adverse reaction; IV Status: Completed infusion mt2 22:18 Drug: Tylenol 1000 mg Route: PO; mt2 23:54 Follow up: Response: No adverse reaction; Temperature is decreased mt2 Disposition: 06/29 07:36 Co-signature as Attending Physician, Radha Shaw MD. fl2 Disposition: 06/28/20 23:42 Discharged to Home. Impression: Fever, unspecified. - Condition is Stable. - Discharge Instructions: Fever, Adult. - Medication Reconciliation Form, Thank You Letter, Antibiotic Education, Prescription Opioid Use form. - Follow up: Emergency Department; When: As needed; Reason: Worsening of condition. Follow up: Private Physician; When: 2 - 3 days; Reason: Recheck today's complaints, Continuance of care, Re-evaluation by your physician. - Problem is new. - Symptoms have improved. Signatures: Dispatcher [employer] [facility] Aly Guerrero, CH[employer]CH BUSINESS ADMINISTRATOR-C [employer]UR[employer] BUSINESS ADMINISTRATOR-Cla1 Jaziel Mcpherson, ALTERATION HAND ALTERATION HAND pm1 Tierney Mcgill, RN RN jl7 Radha Shaw MD MD fl2 Vesta Gomez RN RN mt2 Corrections: (The following items were deleted from the chart) 06/28 19:38 19:05 CORONAVIRUS+Z ordered. [facility] 23:54 23:42 06/28/2020 23:42 Discharged to Home. Impression: Fever, unspecified. Condition is mt2 Stable. Forms are Medication Reconciliation Form, Thank You Letter, Antibiotic Education, Prescription Opioid Use. Follow up: Emergency Department; When: As needed; Reason: Worsening of condition. Follow up: Private Physician; When: 2 - 3 days; Reason: Recheck today's complaints, Continuance of care, Re-evaluation by your physician. Problem is new. Symptoms have improved. pm1
[2020-06-29 19:15] VITALS: BP 145/78; TEMP 100; O2SAT 96
--- NOTE | 2020-06-30 20:04 | EKG ---
Test Date: 2020-06-28 Test Time: 19:01:07 Hat Block Bench Hand: ROB MEASUREMENT RESULTS: Intervals: Rate: 108 MO: 160 QRSD: 82 QT: 338 QTc: 452 [place]: P: 42 MO: 160 QRS: -16 T: -11 INTERPRETIVE STATEMENTS: Sinus tachycardia Nonspecific ST abnormality Abnormal ECG No previous ECG available for comparison Electronically Signed On 06-30-20 19:59:40 CDT by Dangelo Soriano
== END 2020-06-28 23:54 | disposition home or self-care (01) ==
LOC: ER 18:49
DX: R50.9 Fever, unspecified (principal); Z20.828 Contact with and (suspected) exposure to other viral communicable diseases; E11.22 Type 2 diabetes mellitus with diabetic chronic kidney disease; I12.0 Hypertensive chronic kidney disease with stage 5 chronic kidney disease or end stage renal disease; N18.6 End stage renal disease; Z99.2 Dependence on renal dialysis
CPT/HCPCS: 96365; 93005; 87040 ×2; 87070; 85025; 80048; 36415; 82150; 82550; 85610; 82947; 80076; 87081; 83605; 85730; 84484; 82553; 83690; 84145; 87804 ×2; 71045; 99284; U0003; J0696; 81003; 81015